=== PATIENT | male | born 1940 | race Caucasian/White ===

== ENCOUNTER 2017-06-04 07:55 | Outpatient (CLI) | payer MEDICARE ==
[~2017-06-04 07:55] MED LIST: Iopamidol 370 76% 100 ML VIAL ONE
[2017-06-04 08:56] LABS: Anion Gap 11 mmol/L (10-20); BUN (Urea Nitrogen) 22 mg/dL (8.4-25.7); Calc. Creatinine Clearance 0 mL/min (70-130); Calcium 9.6 mg/dL (7.8-10.44); Carbon Dioxide 27 mmol/L (23-31); Chloride 109 mmol/L (98-107); Estimated GFR-MDRD 56; Glucose 107 mg/dL (83-110); Sodium 143 mmol/L (136-145)
--- NOTE | 2017-06-04 11:35 | CT ---
CT ABDOMEN AND PELVIS WITH AND WITHOUT CONTRAST: Date: 06/04/17 HISTORY: Microhematuria. Urogram protocol. COMPARISON: CT abdomen dated 09/30/14. FINDINGS: The lung bases are clear. No pericardial effusion. Prior cardiac surgery. Normal proximal small bowel rotation. There is layering cholelithiasis within the gallbladder fundus. On the noncontrast portion of the examination, there are punctate, nonobstructive calculi interpolar left kidney. Left parapelvic renal cysts, mildly increased in size, without any enhancement. Numerous, too small t o characterize, hypodensities are present throughout the right kidney. Those are greater than 1.0 cm for a simple cyst, largest in the inferior pole of right kidney measuring up to 4.7 cm, mildly incre ased in size from prior exam where it measured up to 4.1 cm. Hypodensity posterior cortex interpolar left kidney mildly increased in size from the comparison examination without significant enhancement. Prostate is markedly enlarged measuring approximately 4.6 x 3.7 x 4.5 cm. Moderate diverticular disease of the sigmoid colon without any active inflammation. No dilated loops of large or small bowel. Moderate atherosclerotic plaque of the aortoiliac system. N o aneurysmal dilatation. Small left-sided indirect inguinal hernia containing fat. On the delayed sequence, there is no significant filling defect within the renal calices nor renal pe lvises. Mild enthesopathic changes of the greater trochanters. Moderate degenerative disease of spino us processes of the lumbar spine. Moderate degenerative disc space height loss throughout the lumbar spine. IMPRESSION: 1. Multiple bilateral renal cysts. 2. No abnormal renal enhancing mass. 3. No abnormal filling defect within the renal collecting systems or ureters. 4. Prostatomegaly. 5. Small, fat-containing, left-sided indirect inguinal hernia. 6. No abnormal intraperitoneal or retroperitoneal adenopathy. 7. Cholelithiasis without evidence of cholecystitis. POS: PELON
== END 2017-06-04 07:56 | disposition home or self-care (01) ==
LOC: CT 07:55
PROVIDERS: ATTEND Urology
DX: R31.29 Other microscopic hematuria (principal); N39.41 Urge incontinence; N40.1 Benign prostatic hyperplasia with lower urinary tract symptoms; N28.1 Cyst of kidney, acquired; K40.90 Unilateral inguinal hernia, without obstruction or gangrene, not specified as recurrent; K80.20 Calculus of gallbladder without cholecystitis without obstruction
CPT/HCPCS: 74178; 80048

== ENCOUNTER 2017-08-06 08:45 | Outpatient (CLI) | payer MEDICARE | END 2017-08-06 08:46 | disposition home or self-care (01) | LOC: BICMRI 08:45 | PROVIDERS: ATTEND Family Medicine | DX: M54.5 Low back pain (principal); M54.9 Dorsalgia, unspecified; M47.896 Other spondylosis, lumbar region; M48.061 Spinal stenosis, lumbar region without neurogenic claudication; M99.83 Other biomechanical lesions of lumbar region; M51.26 Other intervertebral disc displacement, lumbar region | CPT/HCPCS: 72148 ==

== ENCOUNTER 2018-05-01 13:10 | Outpatient (CLI) | payer MEDICARE ==
--- NOTE | 2018-05-01 15:45 | ULT ---
ARTERIAL DUPLEX SONOGRAM BILATERAL LOWER EXTREMITIES 05/01/18 HISTORY: Vascular disease. Leg pain . FINDINGS: There is good color and spectral doppler flow with biphasic arterial waveforms within each common fem oral and deep femoral, femoral, popliteal, anterior tibial, posterior tibial, and dorsalis pedis art devonte. No abnormally elevated peak systolic velocities are apparent. IMPRESSION: Good arterial flow throughout each lower extremity without evidence of significant stenosis. POS: PELON
== END 2018-05-01 13:11 | disposition home or self-care (01) ==
LOC: ULT 13:10
PROVIDERS: ATTEND Family Medicine
DX: I25.10 Atherosclerotic heart disease of native coronary artery without angina pectoris (principal); I73.89 Other specified peripheral vascular diseases; R26.81 Unsteadiness on feet
CPT/HCPCS: 93923

== ENCOUNTER 2019-04-17 15:26 | Outpatient (CLI) | payer MEDICARE ==
--- NOTE | 2019-04-17 16:35 | RAD ---
KUB: 04/17/19 PROVIDED CLINICAL HISTORY: Renal calculi. FINDINGS: No comparisons. The abdominal bowel gas pattern is nonspecific. Calcification overlying the left anisa pelvis is of uncertain etiology and significance. Phlebolith versus UVJ calculus. No definite additio nal radiographically apparent urinary tract calculi. Advanced degenerative changes are seen involving the lumbar spine. IMPRESSION: Left hemipelvic calculus as described. POS: TPC
--- NOTE | 2019-04-17 16:37 | ULT ---
RENAL ULTRASOUND: 04/17/19 PROVIDED CLINICAL HISTORY: Cyst/calculus. FINDINGS: Right kidney measures about 10 x 6.7 x 4.4 cm and demonstrates no evidence for hydronephrosis or kaity d mass. No sonographically apparent renal calculi. There is a simple appearing cyst emanating from th e inferior pole of the right kidney measuring about 6.2 cm. The left kidney measures approximately 9.4 x 6.8 x 5.2 cm and demonstrates no evidence for hydronephr osis, solid mass or sonographically apparent calculus. There is a 3.3 cm simple appearing parapelvic cyst. The urinary bladder appears sonographically unremarkable. IMPRESSION: No evidence for hydronephrosis. POS: TPC
== END 2019-04-17 15:27 | disposition home or self-care (01) ==
LOC: BICULT 15:26
PROVIDERS: ATTEND Urology
DX: N20.0 Calculus of kidney (principal); N28.1 Cyst of kidney, acquired
CPT/HCPCS: 36415; 74018; 76770; 80048; 81001

== ENCOUNTER 2019-06-16 11:14 | Outpatient (CLI) | payer MEDICARE ==
[2019-06-16 12:57] LABS: #Basophils 0.1 thou/uL (0.0-0.2); #Eosinphils 0.2 thou/uL (0.0-0.7); #Lymphocytes 2.1 thou/uL (1.20-3.40); #Monocytes 0.7 thou/uL (0.11-0.59); #Neutrophils 3.1 thou/uL (1.40-6.50); %Basophils 1.9 % (0.0-1.0); %Eosinophils 3.6 % (0.0-10.0); %Lymphocytes 33.9 % (21.0-51.0); %Monocytes 11.4 % (0.0-10.0); %Neutrophils 49.2 % (42.0-75.0); Hemoglobin 14.4 g/dL (14.0-18.0); Mean Corpuscular Hemoglobin 31.5 pg (27.0-31.0); Mean Corpuscular Volume 95.4 fL (78.0-98.0); Mean Platelet Volume 9.8 fL (7.4-10.4); Platelet Count 179 thou/uL (130-400); RBC Distribution Width 12.6 % (11.5-14.5); Red Blood Cell (RBC) Count 4.56 mill/uL (4.70-6.10); White Blood Cell (WBC) Count 6.3 thou/uL (4.8-10.8)
[2019-06-16 13:03] LABS: PTT 29.4 SEC (22.9-36.1)
[2019-06-16 13:04] LABS: Bacteria/HPF None Seen HPF (None Seen); Bilirubin Negative (Negative); Blood, Urine Negative (Negative); Clarity Clear (Clear); Glucose, Urine (Dipstick) Normal (Negative); Leukocyte Negative Leu/uL (Negative); Nitrite Negative (Negative); Protein, Urine (Dipstick) Negative (Neg-Trace); RBC/HPF 0-3 HPF (0-3); Squamous Epithelial 0-3 HPF (0-3); Urobilinogen Normal mg/dL (Less than 2); WBC/HPF 0-3 HPF (0-3)
[2019-06-16 13:15] LABS: Anion Gap 14 mmol/L (10-20); BUN (Urea Nitrogen) 21 mg/dL (8.4-25.7); Calc. Creatinine Clearance 0 mL/min (70-130); Calcium 9.3 mg/dL (7.8-10.44); Carbon Dioxide 24 mmol/L (23-31); Chloride 109 mmol/L (98-107); Estimated GFR-MDRD 48; Glucose 93 mg/dL (83-110); Potassium 4.1 mmol/L (3.5-5.1); Sodium 143 mmol/L (136-145)
== END 2019-06-16 11:15 | disposition home or self-care (01) ==
LOC: LABBT 11:14
PROVIDERS: ATTEND Urology
DX: Z01.818 Encounter for other preprocedural examination (principal); N40.1 Benign prostatic hyperplasia with lower urinary tract symptoms; N39.41 Urge incontinence; N28.1 Cyst of kidney, acquired; N20.0 Calculus of kidney; I25.10 Atherosclerotic heart disease of native coronary artery without angina pectoris; G30.9 Alzheimer's disease, unspecified; F02.80 Dementia in other diseases classified elsewhere, unspecified severity, without behavioral disturbance, psychotic disturbance, mood disturbance, and anxiety
CPT/HCPCS: 80048; 81001; 85025; 85610; 85730; 87086; 93005; 93010

== ENCOUNTER 2019-06-25 07:30 | Day surgery (SDC) | payer MEDICARE ==
[2019-06-16 11:32] VITALS: BMI 26.5
[~2019-06-25 07:30] MED LIST changes: -Iopamidol 370 76% 100 ML VIAL ONE; +Levofloxacin 500 mg/D5W 100 ml Premix Bag ONE
[2019-06-25] MEDS ORDERED: Fentanyl 100 MCG/2 ML VIAL ONE (08:20)
[2019-06-25] MEDS ORDERED: Oxybutynin 5 MG TAB ONE (09:25)
[2019-06-25] MEDS ORDERED: Phenazopyridine HCl 97.5 MG TABLET ONE (09:29)
[2019-06-25] MEDS ORDERED: PROPOFOL 200 MG/20 ML VIAL ONE (10:33)
[2019-06-25] MEDS ORDERED: Lidocaine 1% PF 5 ML VIAL ONE (10:33)
--- NOTE | 2019-06-25 10:47 | OP ---
DATE OF PROCEDURE: 06/25/2019 PREOPERATIVE DIAGNOSIS: Mr. Mclean is an 79-year-old male with history of benign prostatic hyperplasia, urge incontinence, IPSS score is 17. POSTOPERATIVE DIAGNOSIS: Mr. Mclean is an 79-year-old male with history of benign prostatic hyperplasia, urge incontinence, IPSS score is 17. PROCEDURES PERFORMED: Cystoscopy, UroLift x4. ANESTHESIA: TIVA. COMPLICATIONS: None apparent. DRAINS: None. INDICATIONS FOR PROCEDURE AND HISTORY: Mr. Mclean is a pleasant 79-year-old male with history of dementia, with BPH, with urge incontinence. The patient has been on dual medical therapy for numerous years and brother, who is the power of trade mark attorney, desires the patient to come up BPH medications. They have been fully informed that urge incontinence will likely ensue, as BPH is being treated, not his bladder pathology for overactive bladder. Risks and complications of the procedure have been discussed with patient and brother in detail including, but not limited to, bleeding, pain, infection, injury to adjacent organs, urosepsis, possible secondary procedure, incrustation, migration of implant requiring secondary procedure, chronic pain, injury to adjacent organs was reviewed. Options of observation with medical treatment were also reviewed. Alternative treatments including TURP reviewed. DESCRIPTION OF PROCEDURE: After an informed consent was signed, the patient was taken to the operating room, placed in a dorsal lithotomy position with the genital area prepped and draped in the usual surgical sterile fashion. A 21-Latvian cystoscope was utilized for cystoscopy and a 30-degree and a 70-degree lens was utilized. Bladder demonstrates no pathology. Prostatic hyperplasia bilobar obstructing was noted. Trabeculated bladder was noted. The UOs were away from the bladder neck about 3 mm. At this time, I transitioned to a 20-Latvian 0-degree UroLift cystoscope. Using a visual obturator, we passed to the level of the bladder. We treated the left lateral lobe first , staying about 1.5 cm proximal to the bladder neck. A total of 4 implants, two on each side was performed demonstrating a nice anterior channel with resolution of obstructing lateral lobes. He tolerated the procedure well and transported to the recovery room in stable condition. He had minimal oozing bleeding, therefore catheter was not left in situ. He will undergo voiding trial and will be discharged. He will see me ridgeorrow. He is discharged with ciprofloxacin for 3 days, Azo p.r.n. He is to continue his BPH medications for now. Job ID: [id number] MTDD
== END 2019-06-25 12:15 | disposition home or self-care (01) ==
LOC: SDC 07:30
PROVIDERS: ATTEND Urology
PROC: 0T7D8DZ Dilation of Urethra with Intraluminal Device, Via Natural or Artificial Opening Endoscopic (ICD-10-PCS; principal; 2019-06-25)
DX: N40.1 Benign prostatic hyperplasia with lower urinary tract symptoms (principal); N39.41 Urge incontinence; F03.90 Unspecified dementia, unspecified severity, without behavioral disturbance, psychotic disturbance, mood disturbance, and anxiety; Z79.82 Long term (current) use of aspirin; Z79.899 Other long term (current) drug therapy; Z95.1 Presence of aortocoronary bypass graft
CPT/HCPCS: C1889; J1956; J2001; J2704; J3010

== ENCOUNTER 2019-11-30 08:02 | Inpatient (IN) | payer MEDICARE, OTHER ==
[2019-11-30 08:40] LABS: #Eosinphils 0.1 thou/uL (0.0-0.7); #Monocytes 0.9 thou/uL (0.11-0.59); %Basophils 0.4 % (0.0-1.0); %Eosinophils 0.9 % (0.0-10.0); %Lymphocytes 12.7 % (21.0-51.0); %Monocytes 11.4 % (0.0-10.0); %Neutrophils 74.6 % (42.0-75.0); Hemoglobin 14.5 g/dL (14.0-18.0); Mean Corpuscular HGB CONC 33.9 g/dL (32.0-36.0); Mean Corpuscular Hemoglobin 32.3 pg (27.0-31.0); Mean Corpuscular Volume 95.4 fL (78.0-98.0); Mean Platelet Volume 10.2 fL (7.4-10.4); Platelet Count 140 thou/uL (130-400); RBC Distribution Width 12.5 % (11.5-14.5); White Blood Cell (WBC) Count 8.1 thou/uL (4.8-10.8)
[2019-11-30 09:01] LABS: ALT (SGPT) 27 U/L (8-55); AST (SGOT) 34 U/L (5-34); Albumin 4.3 g/dL (3.4-4.8); Alkaline Phosphatase 100 U/L (40-110); Anion Gap 14 mmol/L (10-20); BUN (Urea Nitrogen) 22 mg/dL (8.4-25.7); Bilirubin, Total 0.5 mg/dL (0.2-1.2); CK (CPK) 779 U/L (30-200); Calc. Creatinine Clearance 0 mL/min (70-130); Calcium 9.1 mg/dL (7.8-10.44); Carbon Dioxide 26 mmol/L (23-31); Chloride 104 mmol/L (98-107); Estimated GFR-MDRD 45; Globulin 2.7 g/dL (2.4-3.5); Glucose 117 mg/dL (83-110); Potassium 3.5 mmol/L (3.5-5.1); Sodium 140 mmol/L (136-145)
--- NOTE | 2019-11-30 09:05 | CT ---
CT BRAIN NONCONTRAST: DATE: 11/30/2019 HISTORY: 79-year-old male with altered mental status status post head trauma from fall FINDINGS: There is no evidence of acute intra-axial or extra-axial hemorrhage. There is no midline shift or any other mass effect. There is no extra-axial fluid collection. Mild to moderate ventriculomegaly, probably due to brain atrophy. Small to moderate-sized old infarction inferior aspect of right cerebe llar hemisphere. Moderate-sized old infarction involving posterior and inferior aspect of left cerebellar hemisphere. Tiny old lacunar infarctions involving anterior limb of left internal capsule and bilateral external capsules, and probably the daisy. Calvarium is intact. There is diffuse brain parenchymal volume loss. There are low attenuation areas in the white matter. These are nonspecific, but in a patient of this age, they are probably chronic ischemic white matter changes due to microvascular atherosclerosis. Total opacification of left maxillary sinus. Osseous mural thickening of left maxillary sinus indicates long-standing, chronic sinusitis. High density material within the left maxillary sinus lumen suggestive of chronic fungal colonization. Small calcification within it. Polypoid masses in the anterior portions of nasal cavities bilaterally. Right maxillary sinus, and frontal sinuses, and bilateral tympanomastoid cavities, are grossly clear. Mild to moderate polyp oid mucosal thickening throughout bilateral ethmoid air cells. Polypoid mucosal thickening mildly at anterior portions of bilateral sphenoid air cells. The rest of the sphenoid air cells are clear. IMPRESSION: 1) No acute intracranial findings. 2) involutional changes and chronic ischemic white matter changes. 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 5) paranasal sinus disease and nasal disease.
[2019-11-30] MEDS ORDERED: Aspirin Chewable 81 MG TAB ONE ×3 (09:19→09:29)
--- NOTE | 2019-11-30 09:55 | CT ---
CT CERVICAL SPINE WITHOUT CONTRAST: INDICATIONS: Unwitnessed fall and concern for neck injury. FINDINGS: No acute fracture or subluxation is evident. There is advanced disk degenerative disease at C4-C5, C5 -C6 and C6-C7. The craniocervical junction is normal appearing. The lung apices are clear. The parave rtebral soft tissues are normal appearing. IMPRESSION: 1. No acute fracture or subluxation is evident. 2. Severe multilevel cervical spondylosis. POS: BH
[2019-11-30] MEDS ORDERED: Acetaminophen 650 MG Suppository PR PRN (11:00)
[2019-11-30] MEDS ORDERED: Senokot S 8.6-50 MG TAB PO PRN (11:00)
[2019-11-30] MEDS ORDERED: Acetaminophen 325 MG TAB PO PRN (11:00)
--- NOTE | 2019-11-30 11:17 | RAD ---
CHEST ONE VIEW: INDICATIONS: History of unwitnessed fall. COMPARISON: Prior exam dated 04/12/2014 and a chest radiograph dated 07/03/2018. FINDINGS: Midline sternotomy changes and mild cardiomegaly are stable. Lungs are clear. No pleural effusion or pneumothorax is evident. No definite displaced fracture is evident. IMPRESSION: No acute cardiopulmonary abnormality. POS: BH
[2019-11-30 12:43] LABS: Troponin I 0.054 ng/mL (< 0.028)
[2019-11-30 12:48] LABS: Bacteria/HPF None Seen HPF (None Seen); Bilirubin Negative (Negative); Blood, Urine 1+ (Negative); Clarity Clear (Clear); Glucose, Urine (Dipstick) Normal (Negative); Ketone, Urine Negative (Negative); Leukocyte Negative Leu/uL (Negative); Nitrite Negative (Negative); Protein, Urine (Dipstick) 30 mg/dL (Neg-Trace); RBC/HPF 0-3 HPF (0-3); Specific Gravity, Urine 1.025 (1.002-1.036); Squamous Epithelial None Seen HPF (0-3); Urobilinogen Normal mg/dL (Less than 2); WBC/HPF 0-3 HPF (0-3); pH, Urine 5.5 (5.0-9.0)
--- NOTE | 2019-11-30 13:26 | MRI ---
MRI BRAIN NONCONTRAST: DATE: 11/30/2019 HISTORY: 79-year-old male with altered mental status, status post head trauma from fall. FINDINGS: There is no evidence of acute intra-axial or extra-axial hemorrhage. There is no midline shift or any other mass effect. There is no extra-axial fluid collection. Mild to moderate ventriculomegaly, probably due to brain atrophy. Small to moderate-sized old infarction inferior aspect of right cerebellar hemisphere. Moderate-sized old infarction involving posterior inferior aspect of left cerebellar hemisphere. Tiny old lacunar infarctions involving anterior limb of left internal capsule. No pontine lesion visualized. There is diffuse brain parenchymal volume loss. There are mild-moderate chronic ischemic white matter changes due to microvascular atherosclerosis. Total opacification of left maxillary sinus. Osseous mural thickening of left maxillary sinus indicates long-standing, chronic sinusitis. T2-hypointense material within the left maxillary sinus lumen suggestive of chronic fungal plus small calcification within it. Polypoid masses in the anterior portions of nasal cavities bilaterally. No restricted diffusion to indicate acute infarction. No evidence of recent intra-axial hemorrhage. IMPRESSION: 1) no acute intracranial findings. 2) involutional changes and chronic ischemic white matter changes. 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
--- NOTE | 2019-11-30 13:57 | HP ---
PRIMARY CARE PHYSICIAN: Dr. Beard. CHIEF COMPLAINT: Altered mental status with fall. HISTORY OF PRESENT ILLNESS: Mr. Mclean is an 79-year-old male, who reported to the emergency room today [facility]. ER records and also medical power of trust and estates attorney, his brother, Brijesh, state that they were told that he was found this morning prior to 7 o'clock or around 7 o'clock between the bed and the closet with his head on the bed. Reports in the last day or two the [facility] told his brother that he was not quite himself that they could not understand. He usually can get some words out. He may not be able to formulate a full sentence, but he does speak. He is ambulatory. [facility] usually gets him up in the morning, out. He usually gets dressed and then they will come back and get him and walk with him to have meals. He was unable to ambulate today. He is altered more than his normal. He is usually A and O x1. On the emergency room and for me, he was A and O x0. He will open his eyes he does answer to his name, but he did not speak today and does not follow commands, which is not his baseline per his brother. He does have a past medical history of a coronary artery disease, hyperlipidemia, hypertension, dementia, as well as glaucoma. In the emergency room, his workup was largely unremarkable. He had a CT scan of the head and the neck, which showed some old lacunar infarcts in his brain CT changes and chronic ischemic white matter changes. He had a moderate-sized old infarction in the bilateral PICA and then tiny old infarcts in the left internal capsule and bilateral external capsules, paranasal sinus disease and nasal disease, but otherwise negative for any acute findings. His troponin was slightly bumped in the indeterminate range of 0.054. They did a straight cath. We were able to get urine, but those are not back at the time of this dictation. CK was 779. His creatinine was 1.51, but that is about at baseline, maybe a little elevated. GFR is 54, glucose at 117. White blood cell count at 8.1, hemoglobin of 14.5, hematocrit is 42.9. Chest x-ray showed no acute findings. His brother did report that he had been coughing over the last couple of days, but that was the only. He thought that maybe he might have some postnasal drip, but no fevers were reported at the [facility], and he is afebrile in the emergency room. The patient also is a full code. He will be admitted to the stroke unit for further evaluation. REVIEW OF SYSTEMS: The patient is unable to give a good history. The history that I have been able to obtain is from the emergency record and from his brother, Brijesh, who is his medical power of trust and estates attorney. He would open his eyes, but did not really respond, so a good history was unable to be obtained from the patient. Brother did report that he was not quite himself, was not talking normally. Reports that the [facility] said that speech was off and he is normally ambulatory and he was not unable to get himself up this morning when they found him down. PAST MEDICAL HISTORY: Please see HPI. PAST SURGICAL HISTORY: Coronary artery bypass, three vessels, in 2004. PSYCH HISTORY: Other than dementia, none. SOCIAL HISTORY: Denies any alcohol drug use. No smoking history. MEDICATIONS: 1. Namenda XR 28 mg p.o. once a day. 2. Latanoprost 0.005% one drop each eye once a day at bedtime. 3. Losartan 100 mg p.o. q.a.m. 4. Nifedipine 90 mg p.o. once a day in the morning. 5. Myrbetriq 50 mg p.o. once a day. 6. Multivitamin two tabs b.i.d. 7. Potassium chloride 10 mEq once a day. 8. Sertraline 25 mg p.o. once a day. 9. Flomax 0.4 mg p.o. once a day. 10. Atorvastatin 40 mg p.o. once a day. 11. Aspirin 81 mg p.o. once a day. 12. HydroDIURIL 25 mg p.o. once a day. 13. Flonase 2 sprays bilateral nares once a day. 14. Aricept 1 tab at bedtime 10 mg. 15. Tylenol 650 mg p.o. q.6 hours p.r.n. 16. Loperamide 2 mg p.o. as needed. 17. Systane 0.3% one drop both eyes as needed. ALLERGIES: NONE. PHYSICAL EXAMINATION: CONSTITUTIONAL: The patient appears nontoxic. He is responsive to verbal stimuli, but he does not answer questions nor does he respond to commands. He is pretty sleepy. He opens his eyes, but then he goes right back to sleep. HEENT: Head is atraumatic and normocephalic. Eyes; eyelids are normal to inspection. Extraocular muscles are intact. ENT; mouth exam is normal. Mucous membranes are moist. NECK: Normal range of motion. Trachea is midline. RESPIRATORY/CHEST: There are no signs of any respiratory distress. Breath sounds are clear. CARDIOVASCULAR: Regular rate and rhythm. Heart sounds are normal. ABDOMEN: Nontender. Bowel sounds are heard. BACK: Normal range of motion. No tenderness. EXTREMITIES: Upper extremity, normal inspection; radial pulses are normal. Lower extremity, normal inspection. Pedal pulses are normal. There is an abrasion noted to the left patella. SKIN: The patient is altered. He is responsive to his name, but does not answer questions. Does not follow commands. Speech and gait were unable to assess. SKIN: Warm, dry, normal in color. He does have the abrasion to the left patella. DIAGNOSTIC STUDIES: EKG per the ER system shows a normal sinus rhythm, beats per minute 72, right bundle-branch block, T-wave abnormality. ASSESSMENT: 1. Altered mental status. We are currently awaiting the urine to result. His brother did report that the last time he acted like this he had a urinary tract infection. CT of the scan of the head and neck, negative for acute findings. We will order an MRI of the brain without contrast, echocardiogram, carotid Dopplers. Ask PT, OT, Speech to consult. Get a bedside dysphagia screen. Aspirin 325 mg p.o. daily. We will restart his Lipitor, get fasting lipids and a TSH level. 2. Elevated troponins in the indeterminate range. We will trend these. 3. History of hypertension. We will restart his home medications. 4. History of hyperlipidemia. See #1. 5. History of dementia. We will restart his home medications. 6. GI and deep venous thrombosis prophylaxis started. 7. Case discussed with Dr. Bernal, who agrees with plan. Medical power of trust and estates attorney is Brijesh, and his phone #[phone], his brother. Hospital course dependent on clinical findings. Job ID: [id number]
[2019-11-30 14:35] LABS: Lactic Acid 0.8 mmol/L (0.5-2.2)
[2019-11-30 15:40] VITALS: BMI 24.4
[2019-11-30 15:51] LABS: Troponin I 0.054 ng/mL (< 0.028)
--- NOTE | 2019-11-30 16:00 | ULT ---
BILATERAL CAROTID DUPLEX ULTRASOUND: HISTORY: Altered mental status, head trauma from fall TECHNIQUE: Grayscale, color-flow and spectral Doppler ultrasound imaging of the extracranial carotid artery syst ems was performed bilaterally. FINDINGS: There is plaque formation on both sides. The peak systolic velocity in the right ICA measures 90 cm/s with an end-diastolic velocity of 19 cm/ s and a systolic ratio of 0.85. The peak systolic velocity in the left ICA measures 71 cm/s with an end-diastolic velocity of 15 cm/s and a systolic ratio of 0.84. Flow in both vertebral arteries remains antegrade. IMPRESSION: No evidence of hemodynamically significant stenosis in either ICA
[2019-11-30] MEDS: Heparin 5,000 UNITS/ML VIAL SC SCH ×2 (16:37→20:44)
[2019-11-30] MEDS: Latanoprost 0.005% Ophth Soln 2.5 ml Bottle EA EYE SCH (20:44)
[2019-11-30] MEDS: Donepezil HCl 10 MG TAB PO SCH (20:45)
[2019-11-30] MEDS: Atorvastatin Calcium 40 MG TAB PO SCH (20:45)
[2019-11-30] MEDS: Famotidine 20 MG TAB PO SCH (20:45)
[2019-12-01 07:18] LABS: Anion Gap 12 mmol/L (10-20); BUN (Urea Nitrogen) 20 mg/dL (8.4-25.7); Calc. Creatinine Clearance 42 mL/min (70-130); Calcium 9.1 mg/dL (7.8-10.44); Carbon Dioxide 30 mmol/L (23-31); Cardiac Risk 3.3 (Less than 4.5); Chloride 104 mmol/L (98-107); Cholesterol 150 mg/dl (< 200 Desired); Estimated GFR-MDRD 53; Glucose 98 mg/dL (83-110); HDL Cholesterol 46 mg/dL (>60 Neg Risk); LDL Cholesterol, Calculated 87 mg/dL; Potassium 3.8 mmol/L (3.5-5.1); Sodium 142 mmol/L (136-145); Triglycerides 87 mg/dL (Less than 150)
[2019-12-01 07:19] LABS: Hemoglobin 14.7 g/dL (14.0-18.0); Mean Corpuscular HGB CONC 32.4 g/dL (32.0-36.0); Mean Corpuscular Hemoglobin 31.7 pg (27.0-31.0); Mean Corpuscular Volume 97.9 fL (78.0-98.0); Mean Platelet Volume 10.5 fL (7.4-10.4); Platelet Count 129 thou/uL (130-400); RBC Distribution Width 12.5 % (11.5-14.5); Red Blood Cell (RBC) Count 4.65 mill/uL (4.70-6.10); White Blood Cell (WBC) Count 5.7 thou/uL (4.8-10.8)
[2019-12-01] MEDS: Heparin 5,000 UNITS/ML VIAL SC SCH ×3 (08:32→21:09)
[2019-12-01] MEDS: Aspirin 325 mg Enteric Coated Tablet PO SCH (08:33)
[2019-12-01] MEDS: Losartan 25 MG TAB PO SCH (08:33)
[2019-12-01] MEDS: Hydrochlorothiazide 25 MG TAB PO SCH (08:33)
[2019-12-01] MEDS: Famotidine 20 MG TAB PO SCH (08:33)
[2019-12-01] MEDS ORDERED: Prevnar 13-Val Conj/PF 0.5 ML SYRINGE IM ONE (09:00)
[2019-12-01 09:27] LABS: CKMB 3.6 ng/mL (0-6.6)
[2019-12-01 10:42] LABS: Band 4 % (5-11); Eosinophils 3 % (0-10); Lymphocytes 20 % (21-51); MDiff Complete? YES; Monocytes 16 % (0-10); Neutrophil 53 % (42-75); Platelet Morphology Comment Appears Adequate; Reactive Lymphocytes 4 % (0-10)
[2019-12-01] MEDS: Fluticasone Propionate Nasal Spray 16 gm Bottle NASAL SCH (12:36)
[2019-12-01] MEDS: NIFEdipine XL 90 MG TAB PO SCH (12:38)
[2019-12-01 14:41] LABS: SARS-CoV-2 MS2 Positive; SARS-CoV-2 N Gene Negative; SARS-CoV-2 S Gene Negative; SARS-CoV-2 by NAA Not Detected (NotDetected); SARS-CoV-2 orf1ab Negative
[2019-12-01] MEDS ORDERED: Sodium Chloride 0.9% 500 ML IV SCH (15:00)
--- NOTE | 2019-12-01 15:21 | PDOC.FMACP ---
Advance Care Planning - Problem (1) Hypertension Status: Acute Code(s): I10 - ESSENTIAL (PRIMARY) HYPERTENSION (2) Palliative care encounter Status: Acute Code(s): Z51.5 - ENCOUNTER FOR PALLIATIVE CARE (3) Dementia Status: Acute Code(s): F03.90 - UNSPECIFIED DEMENTIA WITHOUT BEHAVIORAL DISTURBANCE - Note Participants: family, surrogate decision-maker, palliative care Summary: Palliative Care reviewed Advanced Care Planning with patient brother Kang who is listed as MPOA. The diagnosis, prognosis and goals of care were discussed. Appropriate forms and documentation to accomplish the goals of care were discussed. All questions were answered. Kang patient had communicated in the past that his wishes were to remain with full resuscitating, however if not able to have a quality did not desire prolonged support and transition to comfort. Discussed potential for consideration of DNAR in the future if disease trajectory continued toward decline. Please refer to Palliative Care notes in note section Directive addressed, MPOA documented and confirmed. Palliative care will sign off, if we can assist in the future with revisiting Directives, Goal of Care, family support, coping, or symptom management please reconsult our team Time Spent (mins): 20
--- NOTE | 2019-12-01 16:26 | PDOC.EVN ---
Event Note - Event Note Event Note: pt seen and examined he is oriented to self only that is his baseline. will work him up for tia/stroke. will give him some gentle fluids and watch him overnight. will also get PT/OT and see how he does. vitals stable, pt is arousable and oriented to self only, lungs clear, s1 s2 present no murmurs noted.
--- NOTE | 2019-12-01 16:28 | PDOC.HOSPP ---
- Subjective Encounter Date: 12/01/19 Encounter Time: 10:20 Subjective: pt up in bed does not appear in any distress. OT at bedside working with him. - Objective Vital Signs & Weight: Vital Signs (12 hours) Temp Pulse Pulse Resp BP BP BP 12/01/19 15:21 97.9 F 60 16 12/01/19 12:38 59 L 138/84 12/01/19 11:09 97.8 F 54 L 18 12/01/19 10:27 56 L 147/83 H 150/89 H 12/01/19 07:30 97.6 F 53 L 14 BP Pulse Ox 12/01/19 15:21 97/58 L 94 L 12/01/19 12:38 12/01/19 11:09 138/84 94 L 12/01/19 10:27 12/01/19 07:30 161/81 H 98 Weight Weight 147 lb I&O: 11/30/19 12/01/19 12/02/19 06:59 06:59 06:59 Intake Total 50 120 Balance 50 120 Result Diagrams: 12/01/19 06:47 12/01/19 06:47 Hospitalist ROS - Review of Systems Other: unable to obtain - Medication Medications: Active Medications Generic Name Dose Route Start Last Admin Trade Name Freq PRN Reason Stop Dose Admin Aspirin 325 mg 12/01/19 09:00 12/01/19 08:33 Ecotrin PO 325 mg DAILY NATALY Administration Atorvastatin Calcium 40 mg 11/30/19 21:00 11/30/19 20:45 Lipitor PO 40 mg HS NATALY Administration Donepezil HCl 10 mg 11/30/19 21:00 11/30/19 20:45 Aricept PO 10 mg HS NATALY Administration Fluticasone Propionate 0 gm 12/01/19 09:00 12/01/19 12:36 Flonase Nasal [place] NASAL 1 spr DAILY NATALY Administration Heparin Sodium (Porcine) 5,000 units 11/30/19 15:00 12/01/19 15:58 Heparin SC 5,000 units TID NATALY Administration Hydrochlorothiazide 25 mg 12/01/19 09:00 12/01/19 08:33 Hydrochlorothiazide PO 25 mg DAILY NATALY Administration Latanoprost 1 drop 11/30/19 21:00 11/30/19 20:44 Xalatan 0.005% Ophth Soln EA EYE 1 drop HS NATALY Administration Losartan Potassium 100 mg 12/01/19 09:00 12/01/19 08:33 Cozaar PO 100 mg DAILY NATALY Administration Memantine 10 mg 12/01/19 09:00 12/01/19 08:33 Namenda PO 10 mg BID NATALY Administration Mirabegron 50 mg 12/01/19 09:00 12/01/19 08:33 Myrbetriq Er PO 50 mg DAILY NATALY Administration Nifedipine 90 mg 12/01/19 13:00 12/01/19 12:38 Procardia Xl PO 90 mg 1300 NATALY Administration Sertraline HCl 25 mg 12/01/19 09:00 12/01/19 08:33 Zoloft PO 25 mg DAILY NATALY Administration Sodium Chloride 10 ml 11/30/19 11:00 11/30/19 20:45 Flush - Normal Saline IVF 10 ml PRN PRN Administration Saline Flush - Exam Neck: negative: supple, symmetric, no JVD, no thyromegaly, no lymphadenopathy, no carotid bruit, JVD Heart: negative: RRR, no murmur, no gallops, no rubs, normal peripheral pulses, irregular, diminshed peripheral pulses, murmur present, II/IV, III/IV Respiratory: negative: CTAB, no wheezes, no rales, no ronchi, normal chest expansion, no tachypnea, normal percussion, rales, rhonchi, tachypneic, wheezes Gastrointestinal: negative: soft, non-tender, non-distended, normal bowel sounds , no palpable masses, no hepatomegaly, no splenomegaly, no bruit, no guarding, no rigidity, tender to palpation, distended, diminished bowl sounds, voluntary guarding Hosp A/P (1) Fall Code(s): W19.XXXA - UNSPECIFIED FALL, INITIAL ENCOUNTER Status: Acute (2) Elevated CK Status: Acute (3) Elevated troponin Code(s): R79.89 - OTHER SPECIFIED ABNORMAL FINDINGS OF BLOOD CHEMISTRY Status : Acute (4) Dementia Code(s): F03.90 - UNSPECIFIED DEMENTIA WITHOUT BEHAVIORAL DISTURBANCE Status: Acute (5) Hypertension Code(s): I10 - ESSENTIAL (PRIMARY) HYPERTENSION Status: Acute - Plan pt's mri indicated previous strokes. carotid Doppler negative. His ekg no acute changes. echo pending. pt does not seem to be in any distress and is not complaining of any chest pain.
[2019-12-01] MEDS: Melatonin 3 MG TAB PO PRN (21:09)
[2019-12-01] MEDS: Atorvastatin Calcium 40 MG TAB PO SCH (21:10)
[2019-12-01] MEDS: Donepezil HCl 10 MG TAB PO SCH (21:10)
[2019-12-01] MEDS: Latanoprost 0.005% Ophth Soln 2.5 ml Bottle EA EYE SCH (21:10)
[2019-12-01] MEDS ORDERED: Temazepam 15 MG CAP PO SCH ×2 (21:45→22:15)
[2019-12-02] MEDS: Heparin 5,000 UNITS/ML VIAL SC SCH ×3 (08:24→20:18)
[2019-12-02] MEDS: Fluticasone Propionate Nasal Spray 16 gm Bottle NASAL SCH (08:24)
[2019-12-02] MEDS: Famotidine 20 MG TAB PO SCH (08:24)
[2019-12-02] MEDS: Losartan 25 MG TAB PO SCH (08:25)
[2019-12-02] MEDS: Aspirin 325 mg Enteric Coated Tablet PO SCH (08:25)
[2019-12-02] MEDS: Hydrochlorothiazide 25 MG TAB PO SCH (08:25)
[2019-12-02] MEDS: NIFEdipine XL 90 MG TAB PO SCH (13:52)
[2019-12-02] MEDS: Latanoprost 0.005% Ophth Soln 2.5 ml Bottle EA EYE SCH (20:17)
[2019-12-02] MEDS: Melatonin 3 MG TAB PO PRN (20:18)
[2019-12-02] MEDS: Atorvastatin Calcium 40 MG TAB PO SCH (20:18)
[2019-12-02] MEDS: Donepezil HCl 10 MG TAB PO SCH (20:18)
[2019-12-03 05:20] LABS: Anion Gap 13 mmol/L (10-20); BUN (Urea Nitrogen) 27 mg/dL (8.4-25.7); Calc. Creatinine Clearance 44 mL/min (70-130); Carbon Dioxide 28 mmol/L (23-31); Chloride 105 mmol/L (98-107); Estimated GFR-MDRD 55; Glucose 98 mg/dL (83-110); Potassium 3.5 mmol/L (3.5-5.1); Sodium 142 mmol/L (136-145)
[2019-12-03] MEDS: Fluticasone Propionate Nasal Spray 16 gm Bottle NASAL SCH (08:58)
[2019-12-03] MEDS: Aspirin 325 mg Enteric Coated Tablet PO SCH (08:58)
[2019-12-03] MEDS: Hydrochlorothiazide 25 MG TAB PO SCH (08:58)
[2019-12-03] MEDS: Losartan 25 MG TAB PO SCH (08:58)
[2019-12-03] MEDS: Famotidine 20 MG TAB PO SCH (08:58)
[2019-12-03] MEDS: Heparin 5,000 UNITS/ML VIAL SC SCH ×3 (08:59→20:33)
--- NOTE | 2019-12-03 13:50 | PDOC.HOSPP ---
- Subjective Encounter Date: 12/03/19 Encounter Time: 11:15 Subjective: pt up walking with PT. - Objective Vital Signs & Weight: Vital Signs (12 hours) Temp Pulse Resp BP BP Pulse Ox 12/03/19 13:10 97.8 F 59 L 16 121/77 96 12/03/19 09:39 134/82 12/03/19 08:10 97.7 F 53 L 20 123/76 97 12/03/19 03:37 97.4 F L 57 L 14 142/76 H 95 Weight Weight 147 lb I&O: 12/02/19 12/03/19 12/04/19 06:59 06:59 06:59 Intake Total 880 340 Output Total 1 Balance 879 340 Result Diagrams: 12/01/19 06:47 12/03/19 04:23 Hospitalist ROS - Review of Systems Other: unable to obtain - Medication Medications: Active Medications Generic Name Dose Route Start Last Admin Trade Name Freq PRN Reason Stop Dose Admin Acetaminophen 650 mg 11/30/19 11:00 12/01/19 21:09 Tylenol PO 650 mg Q4H PRN Administration Headache/Fever/Mild Pain (1-3) Aspirin 325 mg 12/01/19 09:00 12/03/19 08:58 Ecotrin PO 325 mg DAILY NATALY Administration Atorvastatin Calcium 40 mg 11/30/19 21:00 12/02/19 20:18 Lipitor PO 40 mg HS NATALY Administration Donepezil HCl 10 mg 11/30/19 21:00 12/02/19 20:18 Aricept PO 10 mg HS NATALY Administration Famotidine 20 mg 12/02/19 09:00 12/03/19 08:58 Pepcid PO 20 mg DAILY NATALY Administration Fluticasone Propionate 0 gm 12/01/19 09:00 12/03/19 08:58 Flonase Nasal Farner NASAL 2 spr DAILY NATALY Administration Heparin Sodium (Porcine) 5,000 units 11/30/19 15:00 12/03/19 08:59 Heparin SC 5,000 units TID NATALY Administration Hydrochlorothiazide 25 mg 12/01/19 09:00 12/03/19 08:58 Hydrochlorothiazide PO 25 mg DAILY NATALY Administration Latanoprost 1 drop 11/30/19 21:00 12/02/19 20:17 Xalatan 0.005% Ophth Soln EA EYE 1 drop HS NAATLY Administration Losartan Potassium 100 mg 12/01/19 09:00 12/03/19 08:58 Cozaar PO 100 mg DAILY NATALY Administration Melatonin 3 mg 12/01/19 20:40 12/02/19 20:18 Melatonin PO 3 mg HS PRN Administration Insomnia Memantine 10 mg 12/01/19 09:00 12/03/19 08:59 Namenda PO 10 mg BID NATALY Administration Mirabegron 50 mg 12/01/19 09:00 12/03/19 08:58 Myrbetriq Er PO 50 mg DAILY NATALY Administration Nifedipine 90 mg 12/01/19 13:00 12/02/19 13:52 Procardia Xl PO 90 mg 1300 NATALY Administration Sertraline HCl 25 mg 12/01/19 09:00 12/03/19 08:58 Zoloft PO 25 mg DAILY NATALY Administration Sodium Chloride 10 ml 11/30/19 11:00 12/02/19 20:17 Flush - Normal Saline IVF 10 ml PRN PRN Administration Saline Flush - Exam Neck: negative: supple, symmetric, no JVD, no thyromegaly, no lymphadenopathy, no carotid bruit, JVD Heart: negative: RRR, no murmur, no gallops, no rubs, normal peripheral pulses, irregular, diminshed peripheral pulses, murmur present, II/IV, III/IV Respiratory: negative: CTAB, no wheezes, no rales, no ronchi, normal chest expansion, no tachypnea, normal percussion, rales, rhonchi, tachypneic, wheezes Gastrointestinal: negative: soft, non-tender, non-distended, normal bowel sounds , no palpable masses, no hepatomegaly, no splenomegaly, no bruit, no guarding, no rigidity, tender to palpation, distended, diminished bowl sounds, voluntary guarding Hosp A/P (1) Fall Code(s): W19.XXXA - UNSPECIFIED FALL, INITIAL ENCOUNTER Status: Acute (2) Elevated CK Status: Acute (3) Elevated troponin Code(s): R79.89 - OTHER SPECIFIED ABNORMAL FINDINGS OF BLOOD CHEMISTRY Status : Acute (4) Dementia Code(s): F03.90 - UNSPECIFIED DEMENTIA WITHOUT BEHAVIORAL DISTURBANCE Status: Acute (5) Hypertension Code(s): I10 - ESSENTIAL (PRIMARY) HYPERTENSION Status: Acute - Plan pt's mri indicated previous strokes. carotid Doppler negative. His ekg no acute changes. echo pending. pt does not seem to be in any distress and is not complaining of any chest pain. 12/01 spoke with pt's brother and updated him. will try to see if pt will get inpatient rehab. pt has sever dementia. old stroke on asa/statin. 12/02 pt does not meet the criteria for inpatient rehab. pt will need snf for risk of fall or he will need 24hr assistance given his high risk of fall.
[2019-12-03] MEDS: NIFEdipine XL 90 MG TAB PO SCH (16:04)
[2019-12-03] MEDS: Latanoprost 0.005% Ophth Soln 2.5 ml Bottle EA EYE SCH (20:33)
[2019-12-03] MEDS: Melatonin 3 MG TAB PO PRN (20:33)
[2019-12-03] MEDS: Donepezil HCl 10 MG TAB PO SCH (20:33)
[2019-12-03] MEDS: Atorvastatin Calcium 40 MG TAB PO SCH (20:33)
[2019-12-04] MEDS: Fluticasone Propionate Nasal Spray 16 gm Bottle NASAL SCH (08:52)
[2019-12-04] MEDS: Famotidine 20 MG TAB PO SCH (08:53)
[2019-12-04] MEDS: Aspirin 325 mg Enteric Coated Tablet PO SCH (08:53)
[2019-12-04] MEDS: Losartan 25 MG TAB PO SCH (08:53)
[2019-12-04] MEDS: Hydrochlorothiazide 25 MG TAB PO SCH (08:53)
[2019-12-04] MEDS: Heparin 5,000 UNITS/ML VIAL SC SCH (08:54)
[2019-12-04 11:34] VITALS: BP 119/71; TEMP 97.8
--- NOTE | 2019-12-05 10:42 | DIS ---
DATE OF ADMISSION: 12/02/2019 DATE OF DISCHARGE: 12/04/2019 DISCHARGE DIAGNOSES: As of the following; 1. Acute metabolic encephalopathy. 2. Dementia. 3. Fall. 4. Mildly elevated CK. 5. History of strokes. 6. Mild elevated troponins. HOSPITAL COURSE: The patient is an 79-year-old male. The patient was initially admitted to the hospital after a fall. The patient lives in an assisted living. He does have history of dementia and at baseline is oriented only to himself and maybe his brother, who is his power of state attorney. The patient at this time was ruled out for stroke. He had an MRI of the brain done, which indicated not an acute stroke; however, he had moderate size old infarcts in bilateral PICA territories, also tiny old infarct in the left internal capsule. At this time, this was related to the patient's brother, Kang. The patient also had an echocardiogram, given his mildly elevated troponins, however, he had no pain. His EF was 60% to 65%. Moderately dilated left atrium and sigmoid-shaped septum without any hemodynamically significant left ventricular outlet obstruction. in the hospital, he did well. However, he required some assistance at times. His ambulation was he was waxing and waning and required a little bit more one-on-one care. He was evaluated for inpatient rehab, which was denied. We then asked the family if group home would be an option, they refused. At this time, the patient will be discharged home PT, OT, and the patient's brother is aware of this. He also had carotid Dopplers, did not indicate any hemodynamically significant stenosis. His medication on discharge will be; 1. Aspirin 81 mg daily. 2. Donepezil one p.o. daily. 3. He is going to be on fluticasone two spray daily. 4. Cozaar 100 mg daily. 5. Namenda 20 mg daily. 6. Zoloft one tab daily. 7. Atorvastatin 40 mg daily. 8. Nifedipine one tab p.o. daily. PHYSICAL EXAMINATION: VITAL SIGNS: On discharge, temperature of 97.8, pulse 60, oxygen saturation 97% on room air, and blood pressure 119/71. GENERAL: He is awake, alert, and oriented x3. Does not appear in distress. CV: S1 and S2 present. No murmurs, rubs, or gallops. Again, he will be discharged back to his group home and follow up with his primary. Job ID: [id number]
--- NOTE | 2019-12-06 15:12 | EKG ---
Test Reason : FALL Blood Pressure : / mmHG Vent. Rate : 072 BPM Atrial Rate : 072 BPM P-R Int : 148 ms QRS Dur : 146 ms QT Int : 424 ms P-R-T Axes : 051 006 -26 degrees QTc Int : 464 ms Normal sinus rhythm Right bundle branch block Inferior infarct , age undetermined T wave abnormality, consider lateral ischemia Abnormal ECG Confirmed by LORETTA BARKER DO ([id number]), health editor MILAD HEBERT ([id number]) on 12/06/2019 3:12:03 PM Referred By: Confirmed By:LORETTA BARKER DO
== END 2019-12-04 12:40 | disposition home health service (06) | DRG 72 ==
LOC: ERS 08:02 → OBSVTOIN 11:04 → 2SE 11:04 → INTOOBSV 11:04 → OBSVTOIN 12-02 11:15
PROVIDERS: ADMIT Internal Medicine; ATTEND Internal Medicine
DX: G93.41 Metabolic encephalopathy (principal); Z20.828 Contact with and (suspected) exposure to other viral communicable diseases; I25.10 Atherosclerotic heart disease of native coronary artery without angina pectoris; E78.5 Hyperlipidemia, unspecified; I10 Essential (primary) hypertension; F03.90 Unspecified dementia, unspecified severity, without behavioral disturbance, psychotic disturbance, mood disturbance, and anxiety; H40.9 Unspecified glaucoma; R79.89 Other specified abnormal findings of blood chemistry; Z95.1 Presence of aortocoronary bypass graft; Z79.82 Long term (current) use of aspirin; Z79.899 Other long term (current) drug therapy; Z91.81 History of falling; Z86.73 Personal history of transient ischemic attack (TIA), and cerebral infarction without residual deficits
CPT/HCPCS: 36415; 51701; 70450; 70551; 71045; 72125; 80048; 80053; 80061; 81003; 81015; 82140; 82550; 82553; 83605; 83735; 84146; 84443; 84484; 85025; 87635; 90471; 90670; 93005; 93306; 93880; 94760; 96360; 96372; G0009; G0378; J1644; U0003

== ENCOUNTER 2020-03-21 09:22 | Observation (INO) | payer MEDICARE ==
[2020-03-21 10:31] LABS: #Basophils 0.1 thou/uL (0.0-0.2); #Eosinphils 0.2 thou/uL (0.0-0.7); #Monocytes 0.5 thou/uL (0.11-0.59); #Neutrophils 3.3 thou/uL (1.40-6.50); %Eosinophils 3.7 % (0.0-10.0); %Lymphocytes 33.4 % (21.0-51.0); %Monocytes 8.3 % (0.0-10.0); %Neutrophils 53.6 % (42.0-75.0); Hemoglobin 14.3 g/dL (14.0-18.0); Mean Corpuscular HGB CONC 34.1 g/dL (32.0-36.0); Mean Corpuscular Volume 93.6 fL (78.0-98.0); Mean Platelet Volume 10.2 fL (7.4-10.4); Platelet Count 156 thou/uL (130-400); RBC Distribution Width 12.5 % (11.5-14.5); Red Blood Cell (RBC) Count 4.48 mill/uL (4.70-6.10); White Blood Cell (WBC) Count 6.1 thou/uL (4.8-10.8)
[2020-03-21 10:54] LABS: ALT (SGPT) 39 U/L (8-55); AST (SGOT) 34 U/L (5-34); Albumin 4.3 g/dL (3.4-4.8); Alkaline Phosphatase 88 U/L (40-110); Anion Gap 16 mmol/L (10-20); BUN (Urea Nitrogen) 26 mg/dL (8.4-25.7); Bilirubin, Total 0.6 mg/dL (0.2-1.2); Calc. Creatinine Clearance 0 mL/min (70-130); Calcium 9.1 mg/dL (7.8-10.44); Carbon Dioxide 21 mmol/L (23-31); Chloride 109 mmol/L (98-107); Globulin 2.4 g/dL (2.4-3.5); Glucose 109 mg/dL (83-110); Lipase 50 U/L (8-78); Potassium 3.6 mmol/L (3.5-5.1); Protein, Total 6.7 g/dL (5.8-8.1); Sodium 142 mmol/L (136-145)
[2020-03-21 11:24] LABS: CKMB 6.4 ng/mL (0-6.6)
--- NOTE | 2020-03-21 11:51 | RAD ---
PORTABLE CHEST 1 VIEW: Date: 03/21/2020 Time: 1013 hours HISTORY: Chest pain, altered mental status. COMPARISON: 11/30/2019. FINDINGS: Changes of median sternotomy again seen. The heart size is normal. No lobar consolidation, pneumothor aces, or pleural effusions are seen. IMPRESSION: No acute process. POS: OFF
--- NOTE | 2020-03-21 12:13 | PDOC.HHP ---
Hospitalist HPI - History of Present Illness Chest pain History of Present Illness: Mr. Mclean is an 80-year-old male past medical history of hypertension, hyperlipidemia, coronary artery disease status post CABG in 2004, dementia who resides at a long term who was brought in by his brother for chest pain. Patient's brother reports that at the long term this morning patient became agitated and is normally very talkative and alert but was clutching his chest and reporting that he had some chest pain. Patient's brother reports that patient was not acting himself so he brought his mother to the emergency room. Brother reports that patient has returned to his baseline mental status and feels that his confusion was due to his chest pain or discomfort. Review of systems limited by mental status. In emergency room initial vital signs 149/79, 53, 19, 98.4, 100% on room air. Initial troponin 0 0.032. EKG showed sinus bradycardia with right bundle branch block and inferior T wave inversions. Chest x-ray with no acute findings. BUN/CR 26/1.25. H/H 14.3/41.9. WBC 6.1 sodium 142 potassium 3.6. Patient received 325 mg of aspirin in the emergency room. Patient admitted to hospitalist service for chest pain rule out. Hospitalist ROS - Review of Systems ROS unobtainable: due to mental status - Medication Medications: Medications include Aspirin Donepezil Cozaar Namenda Zoloft Atorvastatin Nifedipine No known drug allergies Hospitalist History - Past Medical History Other Medical History: Past medical history of Coronary artery disease status post CABG thousand 5. Patient follows with Dr. Tate Hypertension Hyperlipidemia Dementia Patient lives at long term his brother Brijesh is his POA. - Past Surgical History Other Surgical History: Past surgical history includes CABG in 2004 - Family History Other Family History: No pertinent family history - Social History Smoking Status: Never smoker Alcohol: reports: None Drugs: reports: none Living Situation: Longterm Activity level: independent ambulation Other Social History: Patient lives at long term secondary to dementia. Patient's brother Brijesh is his power of litigation attorney associate. - Exam General Appearance: awake alert General - other findings: ANO x1 Eye: PERRL, anicteric sclera ENT: normocephalic atraumatic, no oropharyngeal lesions, moist mucosa Neck: supple, symmetric, no JVD, no thyromegaly, no lymphadenopathy, no carotid bruit Heart: RRR, no murmur, no gallops, no rubs, normal peripheral pulses Respiratory: CTAB, no wheezes, no rales, no ronchi, normal chest expansion, no tachypnea, normal percussion Gastrointestinal: soft, non-tender, non-distended, normal bowel sounds, no palpable masses, no hepatomegaly, no splenomegaly, no bruit Extremities: no cyanosis, no clubbing, no edema Skin: normal turgor, no lesions, no rashes Neurological: cranial nerve grossly intact, normal sensation to touch, no weakness, no focal deficits, no new deficit Musculoskeletal: normal tone, normal strength, no muscle wasting Psychiatric: normal affect, normal behavior, A&O x 3 Hospitalist Results - Labs Result Diagrams: 03/21/20 10:19 03/21/20 10:19 Lab results: WBC 6.1 thou/uL (4.8-10.8) 03/21/20 10:19 Hgb 14.3 g/dL (14.0-18.0) 03/21/20 10:19 Hct 41.9 % (42.0-52.0) L 03/21/20 10:19 MCV 93.6 fL (78.0-98.0) 03/21/20 10:19 Plt Count 156 thou/uL (130-400) 03/21/20 10:19 Neutrophils % 53.6 % (42.0-75.0) 03/21/20 10:19 Sodium 142 mmol/L (136-145) 03/21/20 10:19 Potassium 3.6 mmol/L (3.5-5.1) 03/21/20 10:19 Chloride 109 mmol/L (98-107) H 03/21/20 10:19 Carbon Dioxide 21 mmol/L (23-31) L 03/21/20 10:19 BUN 26 mg/dL (8.4-25.7) H 03/21/20 10:19 Creatinine 1.25 mg/dL (0.7-1.3) 03/21/20 10:19 Glucose 109 mg/dL (83-110) 03/21/20 10:19 Calcium 9.1 mg/dL (7.8-10.44) 03/21/20 10:19 Total Bilirubin 0.6 mg/dL (0.2-1.2) 03/21/20 10:19 AST 34 U/L (5-34) 03/21/20 10:19 ALT 39 U/L (8-55) 03/21/20 10:19 Alkaline Phosphatase 88 U/L (40-110) 03/21/20 10:19 CK-MB (CK-2) 6.4 ng/mL (0-6.6) 03/21/20 10:19 Troponin I 0.032 ng/mL (< 0.028) H 03/21/20 10:19 Serum Total Protein 6.7 g/dL (5.8-8.1) 03/21/20 10:19 Albumin 4.3 g/dL (3.4-4.8) 03/21/20 10:19 Lipase 50 U/L (8-78) 03/21/20 10:19 Hospitalist H&P A/P - Plan Plan: 78-year-old male with possible history of coronary artery status post CABG, hyperlipidemia, hypertension, dementia who resides in a long term brought in by his brother for chest pain. Chest pain Patient reported to be clutching his chest and endorsing chest pain at long term this morning. Patient's brother and nursing staff report that patient was not acting himself this morning he is normally alert and oriented x1-2. Patient currently at his baseline mental status. Is confused however due to new en vironment. Initial troponin 0 0.032. EKG showed sinus bradycardia with right bundle branch block inferior T wave inversions. Patient has history of coronary artery disease status post CABG. Follows with Dr. Tate. patient currently denies chest pain although ROS is limited by mental status. Will continue to trend troponins and admit for chest pain rule out. Plan Trend troponin Telemetry monitoring ASA, continue home statin N.p.o. at midnight for stress test if troponins remain negative Dementia History of dementia. Patient on home donepezil and Namenda. Resides at long term. Brother is power of litigation attorney associate. He would like patient to remain full code. We will continue to help orient patient. Plan Continue donepezil and Namenda Continue orienting measures Coronary artery disease History of coronary artery disease status post CABG 2004. Patient presents with chest pain. We will continue plan as above. Hypertension History of hypertension on home Cozaar. And nifedipine. We will continue. Hyperlipidemia Continue home atorvastatin. DVT prophylaxisSQ heparin Full codePOA is patient's brother Brijesh Case discussed with attending physician, Dr. Morrison.
[2020-03-21] MEDS ORDERED: Nitroglycerin 0.4 MG TAB (25 Tab Bottle) SL PRN (12:20)
[2020-03-21] MEDS ORDERED: Aspirin 325 MG TAB PO SCH (12:30)
[2020-03-21] MEDS ORDERED: Aspirin Chewable 81 MG TAB ONE (12:32)
[2020-03-21 13:51] LABS: Troponin I 0.031 ng/mL (< 0.028)
[2020-03-21 14:32] VITALS: BMI 21.9
[2020-03-21] MEDS: Heparin 5,000 UNITS/ML VIAL SC SCH ×2 (15:51→22:07)
[2020-03-21 17:14] LABS: Troponin I 0.023 ng/mL (< 0.028)
[2020-03-21] MEDS ORDERED: Atorvastatin Calcium 40 MG TAB PO SCH (21:00)
[2020-03-21 23:42] LABS: SARS-CoV-2 MS2 Positive; SARS-CoV-2 N Gene Negative; SARS-CoV-2 S Gene Negative; SARS-CoV-2 by NAA Not Detected (NotDetected); SARS-CoV-2 orf1ab Negative
[2020-03-22 05:06] LABS: Anion Gap 12 mmol/L (10-20); BUN (Urea Nitrogen) 27 mg/dL (8.4-25.7); Calc. Creatinine Clearance 39 mL/min (70-130); Carbon Dioxide 28 mmol/L (23-31); Chloride 107 mmol/L (98-107); Glucose 94 mg/dL (83-110); Magnesium 2.3 mg/dL (1.6-2.6); Potassium 3.4 mmol/L (3.5-5.1); Sodium 144 mmol/L (136-145)
[2020-03-22] MEDS ORDERED: Potassium Chloride 20 MEQ TAB PO SCH (05:45)
[2020-03-22] MEDS: Heparin 5,000 UNITS/ML VIAL SC SCH ×2 (08:36→16:15)
[2020-03-22] MEDS ORDERED: Aspirin Chewable 81 MG TAB PO SCH (09:00)
[2020-03-22] MEDS ORDERED: Regadenoson 0.4 MG/5 ML SYRINGE ONE (09:15)
[2020-03-22] MEDS ORDERED: Iopamidol-370 76% 500 ML 1 ML ONE (09:27)
--- NOTE | 2020-03-22 12:36 | NM ---
Nuclear medicine Cardiac myocardial perfusion SPECT Ejection fraction study Wall motion cine: DATE:03/22/2020 9:15 AM INDICATION: Chest pain TECHNIQUE: Number of days:2 Rest Study: Technetium 99m-sestamibi (Cardiolite) dose:9.10 mCi Stress study: Technetium 99m-sestamibi (Cardiolite) dose:33.00 mCi FINDINGS: Cardiac (myocardial perfusion) SPECT There are no reversible myocardial perfusion defects. There is a mild-sized region of predominantly f ixed diminished activity involving the anterior medial aspect of the left ventricular apex likely related to overlying soft tissue artifact. Ejection fraction study Left ventricular EF = 53% Wall motion cine Normal wall motion and thickening. IMPRESSION: No evidence of reversible myocardial ischemia.
--- NOTE | 2020-03-22 14:52 | CT ---
CT arteriogram chest with IV contrast and 3-D imaging HISTORY: Chest pain. FINDINGS: There is good contrast opacification pulmonary arteries and thoracic aorta with normal bran jeffery great vessels at the aortic arch. Postoperative changes mediastinum and atherosclerosis are apparent. No lung consolidation, pneumothorax, or mediastinal adenopathy. Within the partially visualized upper abdomen, small hyperdense stones are apparent within the gallbl adder lumen. IMPRESSION : No evidence of pulmonary embolus. Cholelithiasis.
[2020-03-22] MEDS ORDERED: FLU VACC QS2020-21(65YR UP)/PF 240 MCG/0.7 ML SYRINGE IM ONE (15:00)
--- NOTE | 2020-03-22 15:10 | PDOC.DS.DS ---
Provider - Provider Date of Admission: 03/21/20 11:42 Date of Discharge: 03/22/20 Admitting Provider: Kang Morrison DO Primary Care Physician: Willie Rey Course - Hospital Course Hospital Course: Discharge diagnosis: 1. Chest pain 2. Chest pain most likely secondary to musculoskeletal etiology 3. Hypokalemia 4. Hypertriglyceridemia 5. COVID-19 PCR test negative Hospital course: Patient is a pleasant 80-year-old gentleman who was admitted to the hospital on March 21, 2020 for chest pain. He had a nuclear stress test, which did not show any evidence of reversible myocardial ischemia. Left ventricle ejection fraction was 53%. He also had CT angiogram of the chest, which did not show any evidence of pulmonary embolism. He is being discharged in stable condition. - Labs Lab Results: 03/21/20 10:19 03/22/20 04:07 Abnormal Lab Results - Last 48 hrs 03/21/20 10:19: Troponin I 0.032 H 03/21/20 10:19: RBC 4.48 L, Hct 41.9 L, MCH 32.0 H 03/21/20 10:19: Chloride 109 H, Carbon Dioxide 21 L, BUN 26 H 03/21/20 13:07: Troponin I 0.031 H 03/22/20 04:07: Triglycerides 284 H 03/22/20 04:07: Potassium 3.4 L, BUN 27 H, Creatinine 1.37 H 03/22/20 13:06: D-Dimer 0.54 H - Physical Exam Vitals: Vital Signs (12 hours) Temp Pulse Resp BP Pulse Ox 03/22/20 12:00 96.9 F L 51 L 17 170/76 H 97 03/22/20 08:00 97.5 F L 50 L 17 165/78 H 98 03/22/20 04:00 97.4 F L 52 L 12 167/79 H 99 Weight Admit Weight 144 lb 6 oz Weight 144 lb 6 oz Physical Exam: The patient was seen and examined on the day of discharge. Patient denies chest pain or shortness of breath. Vital signs are stable. S1 and S2 are heard. Lungs are clear to auscultation bilaterally. Plan - Discharge Medications Home Medications: Medication Instructions Recorded Confirmed Type Acetaminophen [Tylenol] 650 mg PO DAILY 06/16/19 03/22/20 History Donepezil HCl 5 mg PO HS 06/16/19 03/22/20 History Fluticasone Propionate 2 spray EA NARE DAILY 06/16/19 03/22/20 History Latanoprost/Pf [Latanoprost 0.005% 1 drop EA EYE HS 06/16/19 03/21/20 History Eye Drop] Mirabegron [Myrbetriq] 50 mg PO DAILY 06/16/19 03/22/20 History NIFEdipine [Nifedipine ER] 90 mg PO 1300 06/16/19 03/22/20 History Sertraline HCl [Zoloft] 25 mg PO DAILY 06/16/19 03/21/20 History Losartan Potassium [Cozaar] 100 mg PO DAILY 11/30/19 03/22/20 History Multivit-Minerals/Folic Acid 2 tab PO DAILY 11/30/19 03/22/20 History [One-A-Day Vitacraves Gummies] Aspirin 81 mg PO DAILY #30 tab.chew 12/02/19 03/22/20 Rx Atorvastatin Calcium 1 tab PO HS #0 12/02/19 03/22/20 Rx Acetaminophen 650 mg PO Q6H PRN 03/21/20 03/21/20 History Fexofenadine HCl [Munira Allergy] 180 mg PO DAILY PRN 03/21/20 03/21/20 History Hydrochlorothiazide 25 mg PO DAILY 03/21/20 03/22/20 History Loperamide HCl [Loperamide] 4 mg PO PRN PRN 03/21/20 03/21/20 History Memantine HCl [Namenda XR] 28 mg PO DAILY 03/21/20 03/22/20 History Polyethylene Glycol OPTH DROP 1 drop EA EYE PRN PRN 03/21/20 03/21/20 History [Systane Ophth Solution] Potassium Chloride 10 meq PO DAILY 03/21/20 03/22/20 History Allergies: No Known Allergies Allergy (Verified 11/30/19 14:39) - Follow up Plan [facility] (PATIENT TO RETURN TO [facility]) Willie Rey MD [Primary Care Provider] - 3 Days (CALL AND SCHEDULE FOLLOW UP APPT TO SEE DR REY WITHIN 3 DAYS) Disposition: HOME Quality - Care Measures CORE MEASURES:: N/A
[2020-03-22 15:55] VITALS: BP 170/69; TEMP 97.8
== END 2020-03-22 16:20 | disposition home or self-care (01) ==
LOC: ERS 09:22 → 2NO 11:42
PROVIDERS: ADMIT Family Medicine; ATTEND Family Medicine
DX: R07.9 Chest pain, unspecified (principal); E87.6 Hypokalemia; E78.1 Pure hyperglyceridemia; E78.5 Hyperlipidemia, unspecified; I25.10 Atherosclerotic heart disease of native coronary artery without angina pectoris; I45.10 Unspecified right bundle-branch block; K80.20 Calculus of gallbladder without cholecystitis without obstruction; Z79.82 Long term (current) use of aspirin; Z79.899 Other long term (current) drug therapy; Z95.1 Presence of aortocoronary bypass graft; Z20.828 Contact with and (suspected) exposure to other viral communicable diseases
CPT/HCPCS: 71045; 71275; 78452; 80048; 80053; 80061; 82553; 82962 ×2; 83690; 83735; 84484 ×2; 85025; 85379; 93005; 93017; 94760 ×2; 96372 ×2; 99285; A9500; G0378 ×3; U0003; 36415; 36416; 87635; J1644; J2785; Q9967

== ENCOUNTER 2020-06-25 14:15 | Emergency (ER) | payer MEDICARE ==
[2020-06-25 15:27] LABS: #Basophils 0.1 thou/uL (0.0-0.2); #Eosinphils 0.2 thou/uL (0.0-0.7); #Monocytes 0.7 thou/uL (0.11-0.59); #Neutrophils 4.1 thou/uL (1.40-6.50); %Basophils 0.8 % (0.0-1.0); %Eosinophils 2.6 % (0.0-10.0); %Lymphocytes 28.9 % (21.0-51.0); %Monocytes 9.4 % (0.0-10.0); %Neutrophils 58.3 % (42.0-75.0); Hemoglobin 15.2 g/dL (14.0-18.0); Mean Corpuscular HGB CONC 33.8 g/dL (32.0-36.0); Mean Corpuscular Hemoglobin 32.6 pg (27.0-31.0); Mean Corpuscular Volume 96.5 fL (78.0-98.0); Mean Platelet Volume 9.7 fL (7.4-10.4); Platelet Count 152 thou/uL (130-400); RBC Distribution Width 12.2 % (11.5-14.5); Red Blood Cell (RBC) Count 4.67 mill/uL (4.70-6.10); White Blood Cell (WBC) Count 7.1 thou/uL (4.8-10.8)
[2020-06-25 15:37] LABS: Bilirubin Negative (Negative); Blood, Urine Negative (Negative); Clarity Clear (Clear); Glucose, Urine (Dipstick) Normal (Negative); Ketone, Urine Negative (Negative); Leukocyte Negative Leu/uL (Negative); Nitrite Negative (Negative); Protein, Urine (Dipstick) Negative (Neg-Trace); Specific Gravity, Urine 1.021 (1.002-1.036); Urobilinogen Normal mg/dL (Less than 2)
[2020-06-25 15:57] LABS: ALT (SGPT) 28 U/L (8-55); AST (SGOT) 25 U/L (5-34); Albumin 4.3 g/dL (3.4-4.8); Alkaline Phosphatase 98 U/L (40-110); Anion Gap 14 mmol/L (10-20); BUN (Urea Nitrogen) 28 mg/dL (8.4-25.7); Bilirubin, Total 0.6 mg/dL (0.2-1.2); CK (CPK) 139 U/L (30-200); Calc. Creatinine Clearance 0 mL/min (70-130); Calcium 9.4 mg/dL (7.8-10.44); Carbon Dioxide 25 mmol/L (23-31); Chloride 109 mmol/L (98-107); Globulin 2.7 g/dL (2.4-3.5); Glucose 108 mg/dL (83-110); Lipase 75 U/L (8-78); Potassium 3.3 mmol/L (3.5-5.1); Sodium 145 mmol/L (136-145)
== END 2020-06-25 16:46 | disposition home or self-care (01) ==
LOC: ERS 14:15
DX: R41.82 Altered mental status, unspecified (principal); F03.90 Unspecified dementia, unspecified severity, without behavioral disturbance, psychotic disturbance, mood disturbance, and anxiety; I10 Essential (primary) hypertension; E78.5 Hyperlipidemia, unspecified; Z79.899 Other long term (current) drug therapy
CPT/HCPCS: 36415; 70450; 71045; 80053; 81003; 82550; 83690; 84146; 84484; 85025; 93005

== ENCOUNTER 2020-08-12 12:54 | Outpatient (CLI) | payer MEDICARE | END 2020-08-12 12:55 | disposition home or self-care (01) | LOC: EEG 12:54 | PROVIDERS: ATTEND Nurse Practitioner Acute Care | DX: R40.4 Transient alteration of awareness (principal) | CPT/HCPCS: 95816 ==

== ENCOUNTER 2020-08-25 08:36 | Emergency (ER) | payer MEDICARE ==
[2020-08-25 09:00] LABS: #Basophils 0.1 thou/uL (0.0-0.2); #Eosinphils 0.3 thou/uL (0.0-0.7); #Lymphocytes 2.4 thou/uL (1.20-3.40); #Monocytes 0.7 thou/uL (0.11-0.59); #Neutrophils 4.4 thou/uL (1.40-6.50); %Basophils 0.7 % (0.0-1.0); %Eosinophils 3.8 % (0.0-10.0); %Lymphocytes 30.5 % (21.0-51.0); %Monocytes 8.9 % (0.0-10.0); %Neutrophils 56.1 % (42.0-75.0); Hemoglobin 15.5 g/dL (14.0-18.0); Mean Corpuscular HGB CONC 33.1 g/dL (32.0-36.0); Mean Corpuscular Hemoglobin 31.4 pg (27.0-31.0); Mean Corpuscular Volume 94.7 fL (78.0-98.0); Mean Platelet Volume 9.5 fL (7.4-10.4); Platelet Count 190 thou/uL (130-400); RBC Distribution Width 12.3 % (11.5-14.5); Red Blood Cell (RBC) Count 4.95 mill/uL (4.70-6.10); White Blood Cell (WBC) Count 7.9 thou/uL (4.8-10.8)
[2020-08-25 09:23] LABS: ALT (SGPT) 41 U/L (8-55); AST (SGOT) 36 U/L (5-34); Albumin 4.3 g/dL (3.4-4.8); Alkaline Phosphatase 97 U/L (40-110); Anion Gap 14 mmol/L (10-20); BUN (Urea Nitrogen) 25 mg/dL (8.4-25.7); Bilirubin, Total 0.5 mg/dL (0.2-1.2); Calc. Creatinine Clearance 0 mL/min (70-130); Calcium 9.6 mg/dL (7.8-10.44); Carbon Dioxide 22 mmol/L (23-31); Chloride 108 mmol/L (98-107); Globulin 2.9 g/dL (2.4-3.5); Glucose 90 mg/dL (83-110); Lipase 50 U/L (8-78); Potassium 3.4 mmol/L (3.5-5.1); Protein, Total 7.2 g/dL (5.8-8.1); Sodium 141 mmol/L (136-145)
== END 2020-08-25 10:54 | disposition home or self-care (01) ==
LOC: ERS 08:36
DX: R56.9 Unspecified convulsions (principal); R41.82 Altered mental status, unspecified; I25.10 Atherosclerotic heart disease of native coronary artery without angina pectoris; E78.5 Hyperlipidemia, unspecified; I10 Essential (primary) hypertension; Z86.73 Personal history of transient ischemic attack (TIA), and cerebral infarction without residual deficits; Z79.82 Long term (current) use of aspirin; Z79.899 Other long term (current) drug therapy
CPT/HCPCS: 36415; 71045; 80053; 83690; 84484; 85025; 93005

== ENCOUNTER 2020-08-26 15:37 | Inpatient (IN) | payer MEDICARE ==
[2020-08-26 16:38] LABS: #Eosinphils 0.2 thou/uL (0.0-0.7); #Monocytes 0.6 thou/uL (0.11-0.59); #Neutrophils 2.3 thou/uL (1.40-6.50); %Basophils 0.5 % (0.0-1.0); %Eosinophils 4.3 % (0.0-10.0); %Lymphocytes 37.9 % (21.0-51.0); %Monocytes 12.2 % (0.0-10.0); %Neutrophils 45.1 % (42.0-75.0); Hemoglobin 13.4 g/dL (14.0-18.0); Mean Corpuscular HGB CONC 33.5 g/dL (32.0-36.0); Mean Corpuscular Hemoglobin 32.3 pg (27.0-31.0); Mean Corpuscular Volume 96.4 fL (78.0-98.0); Mean Platelet Volume 9.3 fL (7.4-10.4); Platelet Count 165 thou/uL (130-400); Red Blood Cell (RBC) Count 4.14 mill/uL (4.70-6.10); White Blood Cell (WBC) Count 5.2 thou/uL (4.8-10.8)
[2020-08-26 17:03] LABS: ALT (SGPT) 25 U/L (8-55); AST (SGOT) 24 U/L (5-34); Albumin 3.8 g/dL (3.4-4.8); Alkaline Phosphatase 84 U/L (40-110); Anion Gap 11 mmol/L (10-20); BUN (Urea Nitrogen) 29 mg/dL (8.4-25.7); Bilirubin, Total 0.3 mg/dL (0.2-1.2); Calc. Creatinine Clearance 0 mL/min (70-130); Carbon Dioxide 24 mmol/L (23-31); Chloride 112 mmol/L (98-107); Globulin 2.4 g/dL (2.4-3.5); Glucose 108 mg/dL (83-110); Magnesium 2.1 mg/dL (1.6-2.6); Potassium 3.6 mmol/L (3.5-5.1); Protein, Total 6.2 g/dL (5.8-8.1); Sodium 143 mmol/L (136-145)
[2020-08-26] MEDS ORDERED: Acetaminophen 325 MG TAB PO PRN ×2 (18:48→19:03)
[2020-08-26] MEDS ORDERED: Ondansetron PF 4 MG/2 ML Vial IVP PRN (18:48)
[2020-08-26] MEDS ORDERED: Polyethylene Glycol OPTH DROP 15 ML BOT EA EYE PRN (19:03)
[2020-08-26] MEDS ORDERED: Loratadine 10 MG TAB PO PRN (19:14)
[2020-08-26 20:25] LABS: Troponin I Less than 0.010 ng/mL (< 0.028)
[2020-08-26 21:35] VITALS: BMI 22.8
[2020-08-26] MEDS: Lactated Ringer's 1,000 ML IV SCH (22:23)
[2020-08-26] MEDS: Heparin 5,000 UNITS/ML VIAL SC SCH (22:24)
[2020-08-26] MEDS: Atorvastatin Calcium 40 MG TAB PO SCH (22:24)
[2020-08-26] MEDS: Famotidine 20 MG TAB PO SCH (22:25)
[2020-08-26] MEDS: Donepezil HCl 10 MG TAB PO SCH (22:25)
[2020-08-26] MEDS: Latanoprost 0.005% Ophth Soln 2.5 ml Bottle EA EYE SCH (22:29)
[2020-08-26 22:50] LABS: Troponin I 0.011 ng/mL (< 0.028)
[2020-08-27 04:55] LABS: #Basophils 0.1 thou/uL (0.0-0.2); #Eosinphils 0.3 thou/uL (0.0-0.7); #Lymphocytes 2.2 thou/uL (1.20-3.40); #Monocytes 0.6 thou/uL (0.11-0.59); #Neutrophils 3.8 thou/uL (1.40-6.50); %Basophils 0.9 % (0.0-1.0); %Eosinophils 4.7 % (0.0-10.0); %Lymphocytes 31.6 % (21.0-51.0); %Neutrophils 54.9 % (42.0-75.0); Hemoglobin 13.2 g/dL (14.0-18.0); Mean Corpuscular HGB CONC 33.6 g/dL (32.0-36.0); Mean Corpuscular Hemoglobin 32.3 pg (27.0-31.0); Mean Corpuscular Volume 96.3 fL (78.0-98.0); Mean Platelet Volume 9.9 fL (7.4-10.4); Platelet Count 164 thou/uL (130-400); RBC Distribution Width 12.1 % (11.5-14.5); Red Blood Cell (RBC) Count 4.07 mill/uL (4.70-6.10)
[2020-08-27 05:23] LABS: Anion Gap 10 mmol/L (10-20); BUN (Urea Nitrogen) 26 mg/dL (8.4-25.7); Calc. Creatinine Clearance 39 mL/min (70-130); Calcium 8.9 mg/dL (7.8-10.44); Carbon Dioxide 26 mmol/L (23-31); Chloride 111 mmol/L (98-107); Glucose 83 mg/dL (83-110); Potassium 4.1 mmol/L (3.5-5.1); Sodium 143 mmol/L (136-145)
[2020-08-27 05:24] LABS: Bacteria/HPF None Seen HPF (None Seen); Bilirubin Negative (Negative); Blood, Urine Negative (Negative); Clarity Clear (Clear); Glucose, Urine (Dipstick) Normal (Negative); Ketone, Urine Negative (Negative); Leukocyte Negative Leu/uL (Negative); Nitrite Negative (Negative); Protein, Urine (Dipstick) Negative (Neg-Trace); RBC/HPF 0-3 HPF (0-3); Specific Gravity, Urine 1.013 (1.002-1.036); Squamous Epithelial None Seen HPF (0-3); Urobilinogen Normal mg/dL (Less than 2); WBC/HPF 0-3 HPF (0-3); pH, Urine 6.5 (5.0-9.0)
[2020-08-27] MEDS: Aspirin Chewable 81 MG TAB PO SCH ×2 (09:01→13:38)
[2020-08-27] MEDS: Famotidine 20 MG TAB PO SCH (09:01)
[2020-08-27] MEDS: Losartan 25 MG TAB PO SCH ×2 (09:02→13:38)
[2020-08-27] MEDS: Multivitamin W/ Minerals 1 TAB PO SCH ×2 (09:02→13:38)
[2020-08-27] MEDS: Heparin 5,000 UNITS/ML VIAL SC SCH ×2 (09:04→21:18)
[2020-08-27] MEDS: Lactated Ringer's 1,000 ML IV SCH (11:05)
[2020-08-27 11:29] LABS: SARS-CoV-2 PCR by NAA Not Detected (NotDetected)
[2020-08-27] MEDS: NIFEdipine XL 90 MG TAB PO SCH (12:25)
[2020-08-27] MEDS: Donepezil HCl 10 MG TAB PO SCH (21:18)
[2020-08-27] MEDS: Atorvastatin Calcium 40 MG TAB PO SCH (21:18)
[2020-08-27] MEDS: Latanoprost 0.005% Ophth Soln 2.5 ml Bottle EA EYE SCH (21:19)
[2020-08-28] MEDS: Lactated Ringer's 1,000 ML IV SCH ×2 (01:16→14:39)
[2020-08-28] MEDS: Losartan 25 MG TAB PO SCH (11:48)
[2020-08-28] MEDS: Famotidine 20 MG TAB PO SCH (11:49)
[2020-08-28] MEDS: Aspirin Chewable 81 MG TAB PO SCH (11:50)
[2020-08-28] MEDS: Multivitamin W/ Minerals 1 TAB PO SCH (11:50)
[2020-08-28] MEDS: NIFEdipine XL 90 MG TAB PO SCH (11:52)
[2020-08-28] MEDS: Heparin 5,000 UNITS/ML VIAL SC SCH ×2 (13:19→20:41)
[2020-08-28] MEDS: Donepezil HCl 10 MG TAB PO SCH (20:41)
[2020-08-28] MEDS: Atorvastatin Calcium 40 MG TAB PO SCH (20:42)
[2020-08-28] MEDS: Latanoprost 0.005% Ophth Soln 2.5 ml Bottle EA EYE SCH (20:52)
[2020-08-29] MEDS: Lactated Ringer's 1,000 ML IV SCH ×2 (02:15→16:22)
[2020-08-29] MEDS: Losartan 25 MG TAB PO SCH (09:29)
[2020-08-29] MEDS: Famotidine 20 MG TAB PO SCH (09:29)
[2020-08-29] MEDS: Heparin 5,000 UNITS/ML VIAL SC SCH ×2 (09:29→20:38)
[2020-08-29] MEDS: Multivitamin W/ Minerals 1 TAB PO SCH (09:29)
[2020-08-29] MEDS: Aspirin Chewable 81 MG TAB PO SCH (09:29)
[2020-08-29] MEDS: NIFEdipine XL 90 MG TAB PO SCH (16:38)
[2020-08-29] MEDS: Latanoprost 0.005% Ophth Soln 2.5 ml Bottle EA EYE SCH (20:37)
[2020-08-29] MEDS: Donepezil HCl 10 MG TAB PO SCH (20:38)
[2020-08-29] MEDS: Atorvastatin Calcium 40 MG TAB PO SCH (20:38)
[2020-08-29] MEDS ORDERED: hydrALAZINE 20 MG/ML VIAL SLOW IVP PRN (20:58)
[2020-08-30] MEDS: Lactated Ringer's 1,000 ML IV SCH ×2 (03:04→17:41)
[2020-08-30 05:15] LABS: #Eosinphils 0.3 thou/uL (0.0-0.7); #Neutrophils 5.2 thou/uL (1.40-6.50); %Basophils 0.4 % (0.0-1.0); %Eosinophils 3.6 % (0.0-10.0); %Lymphocytes 23.3 % (21.0-51.0); %Monocytes 11.5 % (0.0-10.0); %Neutrophils 61.2 % (42.0-75.0); Hemoglobin 14.1 g/dL (14.0-18.0); Mean Corpuscular HGB CONC 34.7 g/dL (32.0-36.0); Mean Corpuscular Hemoglobin 32.6 pg (27.0-31.0); Mean Platelet Volume 9.6 fL (7.4-10.4); Platelet Count 159 thou/uL (130-400); RBC Distribution Width 11.9 % (11.5-14.5); Red Blood Cell (RBC) Count 4.34 mill/uL (4.70-6.10); White Blood Cell (WBC) Count 8.6 thou/uL (4.8-10.8)
[2020-08-30 05:41] LABS: Anion Gap 12 mmol/L (10-20); BUN (Urea Nitrogen) 16 mg/dL (8.4-25.7); Calc. Creatinine Clearance 46 mL/min (70-130); Calcium 9.5 mg/dL (7.8-10.44); Carbon Dioxide 21 mmol/L (23-31); Chloride 113 mmol/L (98-107); Glucose 86 mg/dL (83-110); Magnesium 1.9 mg/dL (1.6-2.6); Potassium 3.4 mmol/L (3.5-5.1); Sodium 143 mmol/L (136-145)
[2020-08-30] MEDS ORDERED: Lidocaine 1% (PF) 30 ML VIAL ONE (13:15)
[2020-08-30] MEDS ORDERED: Gentamicin 80 MG/2 ML VIAL ONE (13:15)
[2020-08-30] MEDS ORDERED: CEFAZOLIN 1 GM VIAL ONE (13:15)
[2020-08-30] MEDS: Heparin 5,000 UNITS/ML VIAL SC SCH ×2 (14:50→20:06)
[2020-08-30] MEDS: Aspirin Chewable 81 MG TAB PO SCH (15:34)
[2020-08-30] MEDS: Famotidine 20 MG TAB PO SCH (15:34)
[2020-08-30] MEDS: Losartan 25 MG TAB PO SCH (15:35)
[2020-08-30] MEDS: Multivitamin W/ Minerals 1 TAB PO SCH (15:36)
[2020-08-30] MEDS: NIFEdipine XL 90 MG TAB PO SCH (15:47)
[2020-08-30] MEDS: Carvedilol 6.25 MG TAB PO SCH (17:42)
[2020-08-30] MEDS: Atorvastatin Calcium 40 MG TAB PO SCH (20:06)
[2020-08-30] MEDS: Donepezil HCl 10 MG TAB PO SCH (20:06)
[2020-08-30] MEDS: Latanoprost 0.005% Ophth Soln 2.5 ml Bottle EA EYE SCH (20:06)
[2020-08-30] MEDS: Lorazepam 2 MG/ML VIAL SLOW IVP PRN (21:01)
[2020-08-31] MEDS: Lactated Ringer's 1,000 ML IV SCH (03:44)
[2020-08-31 04:48] LABS: #Eosinphils 0.3 thou/uL (0.0-0.7); #Lymphocytes 1.7 thou/uL (1.20-3.40); #Monocytes 0.9 thou/uL (0.11-0.59); #Neutrophils 5.7 thou/uL (1.40-6.50); %Basophils 0.3 % (0.0-1.0); %Eosinophils 3.4 % (0.0-10.0); %Lymphocytes 19.6 % (21.0-51.0); %Monocytes 10.6 % (0.0-10.0); Hemoglobin 13.8 g/dL (14.0-18.0); Mean Corpuscular HGB CONC 33.9 g/dL (32.0-36.0); Mean Corpuscular Hemoglobin 32.3 pg (27.0-31.0); Mean Corpuscular Volume 95.3 fL (78.0-98.0); Mean Platelet Volume 10.2 fL (7.4-10.4); Platelet Count 148 thou/uL (130-400); RBC Distribution Width 12.2 % (11.5-14.5); Red Blood Cell (RBC) Count 4.28 mill/uL (4.70-6.10); White Blood Cell (WBC) Count 8.6 thou/uL (4.8-10.8)
[2020-08-31 05:02] LABS: Anion Gap 11 mmol/L (10-20); BUN (Urea Nitrogen) 17 mg/dL (8.4-25.7); Calc. Creatinine Clearance 48 mL/min (70-130); Carbon Dioxide 23 mmol/L (23-31); Chloride 110 mmol/L (98-107); Glucose 95 mg/dL (83-110); Potassium 3.7 mmol/L (3.5-5.1); Sodium 140 mmol/L (136-145)
[2020-08-31] MEDS: Losartan 25 MG TAB PO SCH (09:04)
[2020-08-31] MEDS: Aspirin Chewable 81 MG TAB PO SCH (09:04)
[2020-08-31] MEDS: Carvedilol 6.25 MG TAB PO SCH ×2 (09:04→16:51)
[2020-08-31] MEDS: Multivitamin W/ Minerals 1 TAB PO SCH (09:05)
[2020-08-31] MEDS: Heparin 5,000 UNITS/ML VIAL SC SCH ×2 (09:05→20:42)
[2020-08-31] MEDS: Famotidine 20 MG TAB PO SCH (09:05)
[2020-08-31] MEDS: NIFEdipine XL 90 MG TAB PO SCH (14:34)
[2020-08-31] MEDS: Atorvastatin Calcium 40 MG TAB PO SCH (20:41)
[2020-08-31] MEDS: Donepezil HCl 10 MG TAB PO SCH (20:41)
[2020-08-31] MEDS: Latanoprost 0.005% Ophth Soln 2.5 ml Bottle EA EYE SCH (20:42)
[2020-08-31] MEDS: Lorazepam 2 MG/ML VIAL SLOW IVP PRN (22:02)
[2020-09-01] MEDS: Aspirin Chewable 81 MG TAB PO SCH (08:31)
[2020-09-01] MEDS: Heparin 5,000 UNITS/ML VIAL SC SCH (08:32)
[2020-09-01] MEDS: Famotidine 20 MG TAB PO SCH (08:32)
[2020-09-01] MEDS: Multivitamin W/ Minerals 1 TAB PO SCH (08:32)
[2020-09-01] MEDS: Carvedilol 6.25 MG TAB PO SCH (08:32)
[2020-09-01] MEDS: Losartan 25 MG TAB PO SCH (08:46)
[2020-09-01] MEDS: NIFEdipine XL 90 MG TAB PO SCH (12:23)
[2020-09-01 16:06] VITALS: BP 93/60; TEMP 97.8
== END 2020-09-01 16:30 | disposition home health service (06) | DRG 244 ==
LOC: ERS 15:37 → 2NO 17:52 → OBSVTOIN 08-27 14:52 → T4-B 08-31 17:59
PROVIDERS: ADMIT Internal Medicine; ATTEND Internal Medicine
PROC: 0JH606Z Insertion of Pacemaker, Dual Chamber into Chest Subcutaneous Tissue and Fascia, Open Approach (ICD-10-PCS; principal; 2020-08-30)
PROC: 02H63JZ Insertion of Pacemaker Lead into Right Atrium, Percutaneous Approach (ICD-10-PCS; 2020-08-30)
PROC: 02HK3JZ Insertion of Pacemaker Lead into Right Ventricle, Percutaneous Approach (ICD-10-PCS; 2020-08-30)
DX: I49.5 Sick sinus syndrome (principal); Z20.822 Contact with and (suspected) exposure to COVID-19; I12.9 Hypertensive chronic kidney disease with stage 1 through stage 4 chronic kidney disease, or unspecified chronic kidney disease; N18.30 Chronic kidney disease, stage 3 unspecified; F03.90 Unspecified dementia, unspecified severity, without behavioral disturbance, psychotic disturbance, mood disturbance, and anxiety; R77.8 Other specified abnormalities of plasma proteins; I25.10 Atherosclerotic heart disease of native coronary artery without angina pectoris; R56.9 Unspecified convulsions; I25.5 Ischemic cardiomyopathy; Z79.899 Other long term (current) drug therapy; Z95.1 Presence of aortocoronary bypass graft; Z82.49 Family history of ischemic heart disease and other diseases of the circulatory system; Z79.82 Long term (current) use of aspirin; Z78.1 Physical restraint status
CPT/HCPCS: 33208; 36415; 70450; 70551; 71045; 80048; 80053; 80177; 81001; 83690; 83735; 83880; 84146; 84443; 84484; 85025; 87635; 93005; 93306; 93880; 95712; 95819; 95957; 96372; G0378; J0360; J0690; J1580; J1644; J2001; J2060; U0003; U0005

== ENCOUNTER 2021-03-16 10:10 | Outpatient (CLI) | payer MEDICARE | END 2021-03-16 10:11 | disposition home or self-care (01) | LOC: BICRAD 10:10 | PROVIDERS: ATTEND Family Medicine | DX: S00.83XA Contusion of other part of head, initial encounter (principal); J32.0 Chronic maxillary sinusitis | CPT/HCPCS: 70220 ==

== ENCOUNTER 2021-04-22 13:34 | Outpatient (CLI) | payer MEDICARE | END 2021-04-22 13:35 | disposition home or self-care (01) | LOC: BICULT 13:34 | PROVIDERS: ATTEND Urology | DX: N20.0 Calculus of kidney (principal); N28.1 Cyst of kidney, acquired | CPT/HCPCS: 74018; 76770 ==

== ENCOUNTER 2021-10-04 17:06 | Inpatient (IN) | payer MEDICARE ==
[~2021-10-04 17:06] MED LIST changes: +Iopamidol-370 76% 500 ML 1 ML ONE; -Levofloxacin 500 mg/D5W 100 ml Premix Bag ONE
[2021-10-04] MEDS ORDERED: Labetalol HCl 100 MG/20 ML VIAL ONE (17:46)
[2021-10-04] MEDS ORDERED: Ondansetron PF 4 MG/2 ML Vial ONE (17:46)
[2021-10-04 18:01] LABS: #Monocytes 0.8 thou/uL (0.11-0.59); #Neutrophils 9.1 thou/uL (1.40-6.50); %Basophils 0.1 % (0.0-1.0); %Eosinophils 0.1 % (0.0-10.0); %Lymphocytes 8.9 % (21.0-51.0); %Monocytes 7.2 % (0.0-10.0); %Neutrophils 83.6 % (42.0-75.0); Hemoglobin 13.6 g/dL (14.0-18.0); Mean Corpuscular HGB CONC 33.3 g/dL (32.0-36.0); Mean Corpuscular Hemoglobin 32.6 pg (27.0-31.0); Mean Platelet Volume 9.6 fL (7.4-10.4); Platelet Count 132 thou/uL (130-400); RBC Distribution Width 12.3 % (11.5-14.5); Red Blood Cell (RBC) Count 4.17 mill/uL (4.70-6.10); White Blood Cell (WBC) Count 10.8 thou/uL (4.8-10.8)
[2021-10-04 18:28] LABS: ALT (SGPT) 24 U/L (8-55); AST (SGOT) 26 U/L (5-34); Alkaline Phosphatase 98 U/L (40-110); Anion Gap 15 mmol/L (10-20); BUN (Urea Nitrogen) 24 mg/dL (8.4-25.7); Bilirubin, Total 0.8 mg/dL (0.2-1.2); CK (CPK) 152 U/L (30-200); Calc. Creatinine Clearance 0 mL/min (70-130); Carbon Dioxide 24 mmol/L (23-31); Chloride 108 mmol/L (98-107); Estimated GFR 47; Globulin 3.1 g/dL (2.4-3.5); Glucose 132 mg/dL (83-110); Lipase 29 U/L (8-78); Potassium 3.5 mmol/L (3.5-5.1); Protein, Total 7.1 g/dL (5.8-8.1); Sodium 143 mmol/L (136-145)
[2021-10-04 18:45] LABS: CKMB 1.3 ng/mL (0-6.6)
[2021-10-04 20:14] LABS: Bacteria/HPF None Seen HPF (None Seen); Bilirubin Negative (Negative); Blood, Urine Negative (Negative); Clarity Clear (Clear); Glucose, Urine (Dipstick) Normal (Negative); Ketone, Urine Trace mg/dL (Negative); Leukocyte Negative Leu/uL (Negative); Nitrite Negative (Negative); Protein, Urine (Dipstick) 50 mg/dL (Neg-Trace); RBC/HPF 0-3 HPF (0-3); Specific Gravity, Urine 1.035 (1.002-1.036); Squamous Epithelial 0-3 HPF (0-3); Urobilinogen Normal mg/dL (Less than 2); WBC/HPF 0-3 HPF (0-3); pH, Urine 5.5 (5.0-9.0)
[2021-10-04] MEDS ORDERED: Acetaminophen 650 MG Suppository ONE (20:56)
[2021-10-04 21:10] LABS: SARS-CoV-2 NAA Rapid Test DETECTED (NotDetected)
[2021-10-04 21:46] LABS: CKMB 1.5 ng/mL (0-6.6)
[2021-10-05 00:52] LABS: Troponin I 0.034 ng/mL (< 0.028)
[2021-10-05] MEDS ORDERED: Ondansetron PF 4 MG/2 ML Vial IVP PRN (01:01)
[2021-10-05] MEDS ORDERED: Guaifenesin DM 100-10/5 ML UDCUP PO PRN (01:01)
[2021-10-05] MEDS ORDERED: Senokot S 8.6-50 MG TAB PO PRN (01:01)
[2021-10-05] MEDS ORDERED: Acetaminophen 325 MG TAB PO PRN ×2 (01:01→01:03)
[2021-10-05] MEDS ORDERED: Bisacodyl 5 MG TAB PO PRN (01:01)
[2021-10-05] MEDS ORDERED: Dexamethasone 10 MG in Sodium Chloride 0.9% 50 ML IVPB SCH ×2 (01:30→09:00)
[2021-10-05 02:53] LABS: #Lymphocytes 1.4 thou/uL (1.20-3.40); #Neutrophils 7.6 thou/uL (1.40-6.50); %Basophils 0.5 % (0.0-1.0); %Eosinophils 0.2 % (0.0-10.0); %Lymphocytes 13.4 % (21.0-51.0); %Monocytes 10.1 % (0.0-10.0); %Neutrophils 75.9 % (42.0-75.0); Hemoglobin 14.1 g/dL (14.0-18.0); Mean Corpuscular HGB CONC 32.6 g/dL (32.0-36.0); Mean Corpuscular Hemoglobin 32.4 pg (27.0-31.0); Mean Corpuscular Volume 99.3 fL (78.0-98.0); Mean Platelet Volume 9.4 fL (7.4-10.4); Platelet Count 129 thou/uL (130-400); RBC Distribution Width 12.4 % (11.5-14.5); Red Blood Cell (RBC) Count 4.34 mill/uL (4.70-6.10); White Blood Cell (WBC) Count 10.1 thou/uL (4.8-10.8)
[2021-10-05] MEDS: Sodium Chloride 0.9% 1,000 ML IV SCH ×2 (03:06→14:24)
[2021-10-05 03:20] LABS: Troponin I 0.036 ng/mL (< 0.028)
[2021-10-05 03:38] LABS: ALT (SGPT) 24 U/L (8-55); AST (SGOT) 28 U/L (5-34); Albumin 4.1 g/dL (3.4-4.8); Alkaline Phosphatase 96 U/L (40-110); Anion Gap 15 mmol/L (10-20); BUN (Urea Nitrogen) 24 mg/dL (8.4-25.7); Bilirubin, Total 0.8 mg/dL (0.2-1.2); Calc. Creatinine Clearance 32 mL/min (70-130); Calcium 9.2 mg/dL (7.8-10.44); Carbon Dioxide 27 mmol/L (23-31); Chloride 106 mmol/L (98-107); Estimated GFR 44; Globulin 3.1 g/dL (2.4-3.5); Glucose 118 mg/dL (83-110); Potassium 4.3 mmol/L (3.5-5.1); Protein, Total 7.2 g/dL (5.8-8.1); Sodium 144 mmol/L (136-145)
[2021-10-05] MEDS: cefTRIAXone\\ROCEPHIN 1 GM in Sodium Chloride 0.9% 100 ML IVPB SCH (03:45)
[2021-10-05] MEDS ORDERED: cefTRIAXone\\ROCEPHIN 1 GM VIAL ONE (04:55)
[2021-10-05] MEDS ORDERED: Enoxaparin Sodium 40 MG/0.4 ML SYRINGE ONE (08:45)
[2021-10-05] MEDS ORDERED: Famotidine 20 MG TAB ONE (08:45)
[2021-10-05] MEDS ORDERED: Aspirin Chewable 81 MG TAB ONE (08:45)
[2021-10-05] MEDS: Enoxaparin Sodium 40 MG/0.4 ML SYRINGE SC SCH (08:58)
[2021-10-05] MEDS: Famotidine 20 MG TAB PO SCH (08:58)
[2021-10-05] MEDS: Carvedilol 6.25 MG TAB PO SCH ×2 (08:58→17:41)
[2021-10-05] MEDS: Aspirin Chewable 81 MG TAB PO SCH (08:58)
[2021-10-05] MEDS: Dexamethasone 10 MG/ML VIAL SLOW IVP SCH (09:20)
[2021-10-05] MEDS ORDERED: Dexamethasone 4 mg/ml Vial ONE (09:22)
[2021-10-05] MEDS ORDERED: OLANZapine 10 MG VIAL IM SCH (13:13)
[2021-10-05 15:23] LABS: Bacteria/HPF None Seen HPF (None Seen); Bilirubin Negative (Negative); Blood, Urine 3+ (Negative); Clarity Clear (Clear); Glucose, Urine (Dipstick) Normal (Negative); Ketone, Urine Negative (Negative); Leukocyte Negative Leu/uL (Negative); Nitrite Negative (Negative); Protein, Urine (Dipstick) 70 mg/dL (Neg-Trace); Squamous Epithelial None Seen HPF (0-3); Urobilinogen Normal mg/dL (Less than 2); WBC/HPF 0-3 HPF (0-3)
[2021-10-05 15:26] LABS: RBC/HPF 21-50 HPF (0-3); Specific Gravity, Urine 1.046 (1.002-1.036)
[2021-10-05 15:27] LABS: Urine Culture Reflex No No
[2021-10-05] MEDS: Donepezil HCl 10 MG TAB PO SCH (20:08)
[2021-10-05] MEDS: Latanoprost 0.005% Ophth Soln 2.5 ml Bottle EA EYE SCH (21:33)
[2021-10-06] MEDS: cefTRIAXone\\ROCEPHIN 1 GM in Sodium Chloride 0.9% 100 ML IVPB SCH (02:33)
[2021-10-06] MEDS: Sodium Chloride 0.9% 1,000 ML IV SCH (02:33)
[2021-10-06 06:30] LABS: #Lymphocytes 1.3 thou/uL (1.20-3.40); #Monocytes 1.4 thou/uL (0.11-0.59); #Neutrophils 8.7 thou/uL (1.40-6.50); %Basophils 0.1 % (0.0-1.0); %Eosinophils 0.1 % (0.0-10.0); %Lymphocytes 11.3 % (21.0-51.0); %Monocytes 12.1 % (0.0-10.0); %Neutrophils 76.3 % (42.0-75.0); Hemoglobin 12.6 g/dL (14.0-18.0); Mean Corpuscular HGB CONC 32.3 g/dL (32.0-36.0); Mean Corpuscular Hemoglobin 32.3 pg (27.0-31.0); Mean Platelet Volume 9.9 fL (7.4-10.4); Platelet Count 134 thou/uL (130-400); RBC Distribution Width 12.4 % (11.5-14.5); Red Blood Cell (RBC) Count 3.91 mill/uL (4.70-6.10); White Blood Cell (WBC) Count 11.5 thou/uL (4.8-10.8)
[2021-10-06 06:54] LABS: Anion Gap 11 mmol/L (10-20); BUN (Urea Nitrogen) 30 mg/dL (8.4-25.7); Calc. Creatinine Clearance 37 mL/min (70-130); Calcium 8.9 mg/dL (7.8-10.44); Carbon Dioxide 27 mmol/L (23-31); Chloride 111 mmol/L (98-107); Estimated GFR 52; Glucose 92 mg/dL (83-110); Potassium 3.3 mmol/L (3.5-5.1); Sodium 146 mmol/L (136-145)
[2021-10-06] MEDS ORDERED: Potassium Chloride 20 MEQ TAB PO SCH (07:28)
[2021-10-06 08:17] LABS: Magnesium 2.2 mg/dL (1.6-2.6)
[2021-10-06] MEDS ORDERED: Dexamethasone 10 MG/ML VIAL SLOW IVP SCH (09:00)
[2021-10-06] MEDS: Enoxaparin Sodium 40 MG/0.4 ML SYRINGE SC SCH (09:59)
[2021-10-06] MEDS: Clopidogrel Bisulfate 75 MG TAB PO SCH (09:59)
[2021-10-06] MEDS: Carvedilol 6.25 MG TAB PO SCH ×2 (09:59→17:42)
[2021-10-06] MEDS: Famotidine 20 MG TAB PO SCH (09:59)
[2021-10-06] MEDS: Dexamethasone 10 MG/ML VIAL SLOW IVP SCH (09:59)
[2021-10-06] MEDS: Aspirin Chewable 81 MG TAB PO SCH (09:59)
[2021-10-06] MEDS: Zinc Sulfate 220 MG CAP PO SCH (09:59)
[2021-10-06] MEDS: Sodium Chloride 0.45% 1,000 ML IV SCH ×2 (10:00→23:19)
[2021-10-06] MEDS: Multivit, Therapeutic 1 TAB PO SCH (10:03)
[2021-10-06] MEDS: NIFEdipine XL 90 MG TAB PO SCH (13:57)
[2021-10-06] MEDS: Atorvastatin Calcium 40 MG TAB PO SCH (21:00)
[2021-10-06] MEDS: Donepezil HCl 10 MG TAB PO SCH (21:01)
[2021-10-06] MEDS: Latanoprost 0.005% Ophth Soln 2.5 ml Bottle EA EYE SCH (21:01)
[2021-10-07] MEDS ORDERED: OLANZapine 2.5 MG TAB PO SCH (01:30)
[2021-10-07] MEDS: cefTRIAXone\\ROCEPHIN 1 GM in Sodium Chloride 0.9% 100 ML IVPB SCH (01:32)
[2021-10-07 06:49] LABS: #Lymphocytes 1.1 thou/uL (1.20-3.40); #Neutrophils 6.9 thou/uL (1.40-6.50); %Basophils 0.1 % (0.0-1.0); %Eosinophils 0.1 % (0.0-10.0); %Lymphocytes 11.7 % (21.0-51.0); %Monocytes 11.4 % (0.0-10.0); %Neutrophils 76.7 % (42.0-75.0); Hemoglobin 13.3 g/dL (14.0-18.0); Mean Corpuscular HGB CONC 32.3 g/dL (32.0-36.0); Mean Corpuscular Hemoglobin 31.9 pg (27.0-31.0); Mean Corpuscular Volume 98.7 fL (78.0-98.0); Mean Platelet Volume 9.5 fL (7.4-10.4); Platelet Count 146 thou/uL (130-400); RBC Distribution Width 12.4 % (11.5-14.5); Red Blood Cell (RBC) Count 4.16 mill/uL (4.70-6.10)
[2021-10-07 07:15] LABS: Anion Gap 13 mmol/L (10-20); BUN (Urea Nitrogen) 28 mg/dL (8.4-25.7); Calc. Creatinine Clearance 43 mL/min (70-130); Calcium 8.6 mg/dL (7.8-10.44); Carbon Dioxide 23 mmol/L (23-31); Chloride 110 mmol/L (98-107); Estimated GFR 63; Glucose 89 mg/dL (83-110); Potassium 3.5 mmol/L (3.5-5.1); Sodium 142 mmol/L (136-145)
[2021-10-07] MEDS: Carvedilol 6.25 MG TAB PO SCH ×2 (10:12→17:29)
[2021-10-07] MEDS: Aspirin Chewable 81 MG TAB PO SCH (10:12)
[2021-10-07] MEDS: Multivit, Therapeutic 1 TAB PO SCH (10:12)
[2021-10-07] MEDS: Zinc Sulfate 220 MG CAP PO SCH (10:12)
[2021-10-07] MEDS: Famotidine 20 MG TAB PO SCH (10:13)
[2021-10-07] MEDS: Clopidogrel Bisulfate 75 MG TAB PO SCH (10:13)
[2021-10-07] MEDS: Dexamethasone 10 MG/ML VIAL SLOW IVP SCH (10:13)
[2021-10-07] MEDS: Enoxaparin Sodium 40 MG/0.4 ML SYRINGE SC SCH (10:13)
[2021-10-07] MEDS: NIFEdipine XL 90 MG TAB PO SCH (13:20)
[2021-10-07] MEDS: Donepezil HCl 10 MG TAB PO SCH (22:39)
[2021-10-07] MEDS: Atorvastatin Calcium 40 MG TAB PO SCH (22:39)
[2021-10-07] MEDS: Latanoprost 0.005% Ophth Soln 2.5 ml Bottle EA EYE SCH (22:41)
[2021-10-08] MEDS: cefTRIAXone\\ROCEPHIN 1 GM in Sodium Chloride 0.9% 100 ML IVPB SCH (02:33)
[2021-10-08] MEDS: Famotidine 20 MG TAB PO SCH (08:25)
[2021-10-08] MEDS: Aspirin Chewable 81 MG TAB PO SCH (08:25)
[2021-10-08] MEDS: Zinc Sulfate 220 MG CAP PO SCH (08:26)
[2021-10-08] MEDS: Carvedilol 6.25 MG TAB PO SCH ×2 (08:26→17:56)
[2021-10-08] MEDS: Multivit, Therapeutic 1 TAB PO SCH (08:26)
[2021-10-08] MEDS: Clopidogrel Bisulfate 75 MG TAB PO SCH (08:26)
[2021-10-08] MEDS: Dexamethasone 10 MG/ML VIAL SLOW IVP SCH (08:27)
[2021-10-08] MEDS: Enoxaparin Sodium 40 MG/0.4 ML SYRINGE SC SCH (08:27)
[2021-10-08] MEDS ORDERED: Dexamethasone 10 MG/ML VIAL SLOW IVP SCH (13:15)
[2021-10-08 13:42] LABS: #Lymphocytes 1.3 thou/uL (1.20-3.40); #Monocytes 0.3 thou/uL (0.11-0.59); #Neutrophils 7.1 thou/uL (1.40-6.50); %Basophils 0.2 % (0.0-1.0); %Eosinophils 0.1 % (0.0-10.0); %Lymphocytes 14.3 % (21.0-51.0); %Monocytes 3.8 % (0.0-10.0); %Neutrophils 81.6 % (42.0-75.0); Hemoglobin 14.4 g/dL (14.0-18.0); Mean Corpuscular HGB CONC 33.2 g/dL (32.0-36.0); Mean Corpuscular Hemoglobin 32.9 pg (27.0-31.0); Mean Platelet Volume 9.5 fL (7.4-10.4); Platelet Count 164 thou/uL (130-400); RBC Distribution Width 12.4 % (11.5-14.5); Red Blood Cell (RBC) Count 4.39 mill/uL (4.70-6.10); White Blood Cell (WBC) Count 8.7 thou/uL (4.8-10.8)
[2021-10-08 14:03] LABS: Anion Gap 14 mmol/L (10-20); BUN (Urea Nitrogen) 27 mg/dL (8.4-25.7); Calc. Creatinine Clearance 42 mL/min (70-130); Calcium 8.6 mg/dL (7.8-10.44); Carbon Dioxide 23 mmol/L (23-31); Chloride 108 mmol/L (98-107); Estimated GFR 60; Glucose 126 mg/dL (83-110); Potassium 3.7 mmol/L (3.5-5.1); Sodium 141 mmol/L (136-145)
[2021-10-08] MEDS: NIFEdipine XL 90 MG TAB PO SCH (14:22)
[2021-10-08] MEDS ORDERED: ALPRAZolam 0.5 MG TAB PO SCH (15:15)
[2021-10-08] MEDS: Atorvastatin Calcium 40 MG TAB PO SCH (20:39)
[2021-10-08] MEDS: Donepezil HCl 10 MG TAB PO SCH (20:40)
[2021-10-08] MEDS: Latanoprost 0.005% Ophth Soln 2.5 ml Bottle EA EYE SCH (20:41)
[2021-10-09] MEDS ORDERED: Lorazepam 2 MG/ML VIAL SLOW IVP SCH ×2 (01:15→19:30)
[2021-10-09] MEDS: cefTRIAXone\\ROCEPHIN 1 GM in Sodium Chloride 0.9% 100 ML IVPB SCH (01:35)
[2021-10-09] MEDS ORDERED: Dexamethasone 10 MG/ML VIAL SLOW IVP SCH (09:00)
[2021-10-09] MEDS: Aspirin Chewable 81 MG TAB PO SCH (09:45)
[2021-10-09] MEDS: Enoxaparin Sodium 40 MG/0.4 ML SYRINGE SC SCH (09:45)
[2021-10-09] MEDS: Famotidine 20 MG TAB PO SCH (09:45)
[2021-10-09] MEDS: Multivit, Therapeutic 1 TAB PO SCH (09:45)
[2021-10-09] MEDS: Clopidogrel Bisulfate 75 MG TAB PO SCH (09:45)
[2021-10-09] MEDS: Losartan 25 MG TAB PO SCH (09:45)
[2021-10-09] MEDS: Zinc Sulfate 220 MG CAP PO SCH (09:45)
[2021-10-09] MEDS: Carvedilol 6.25 MG TAB PO SCH ×2 (09:45→16:52)
[2021-10-09] MEDS ORDERED: [UNRECOGNIZED DRUG - REMARK] FS PRN (13:39)
[2021-10-09] MEDS: NIFEdipine XL 90 MG TAB PO SCH (14:02)
[2021-10-09] MEDS: Atorvastatin Calcium 40 MG TAB PO SCH (21:08)
[2021-10-09] MEDS: Donepezil HCl 10 MG TAB PO SCH (21:09)
[2021-10-09] MEDS: Latanoprost 0.005% Ophth Soln 2.5 ml Bottle EA EYE SCH (21:12)
[2021-10-10] MEDS: Aspirin Chewable 81 MG TAB PO SCH ×2 (10:17→11:24)
[2021-10-10] MEDS: Carvedilol 6.25 MG TAB PO SCH ×3 (10:17→17:04)
[2021-10-10] MEDS: Zinc Sulfate 220 MG CAP PO SCH ×2 (10:17→11:24)
[2021-10-10] MEDS: Clopidogrel Bisulfate 75 MG TAB PO SCH ×2 (10:17→11:24)
[2021-10-10] MEDS: Multivit, Therapeutic 1 TAB PO SCH ×2 (10:18→11:24)
[2021-10-10] MEDS: Losartan 25 MG TAB PO SCH ×2 (10:18→11:24)
[2021-10-10] MEDS: Enoxaparin Sodium 40 MG/0.4 ML SYRINGE SC SCH (10:18)
[2021-10-10] MEDS: Famotidine 20 MG TAB PO SCH ×2 (10:18→11:24)
[2021-10-10] MEDS ORDERED: Lorazepam 2 MG/ML VIAL SLOW IVP SCH (11:15)
[2021-10-10] MEDS: hydrALAZINE 20 MG/ML VIAL SLOW IVP PRN (14:03)
[2021-10-10] MEDS: NIFEdipine XL 90 MG TAB PO SCH (15:09)
[2021-10-10] MEDS: Lorazepam 2 MG/ML VIAL SLOW IVP PRN ×2 (18:08→23:32)
[2021-10-10] MEDS: Enalaprilat Dihydrate 1.25 MG/ML VIAL SLOW IVP SCH ×2 (18:09→23:33)
[2021-10-10] MEDS: Donepezil HCl 10 MG TAB PO SCH (20:25)
[2021-10-10] MEDS: Atorvastatin Calcium 40 MG TAB PO SCH (20:25)
[2021-10-10] MEDS: Latanoprost 0.005% Ophth Soln 2.5 ml Bottle EA EYE SCH (20:26)
[2021-10-11] MEDS: hydrALAZINE 20 MG/ML VIAL SLOW IVP PRN (04:01)
[2021-10-11] MEDS: Enalaprilat Dihydrate 1.25 MG/ML VIAL SLOW IVP SCH ×5 (05:35→23:45)
[2021-10-11] MEDS: Clopidogrel Bisulfate 75 MG TAB PO SCH (10:26)
[2021-10-11] MEDS: Famotidine 20 MG TAB PO SCH (10:26)
[2021-10-11] MEDS: Carvedilol 6.25 MG TAB PO SCH ×3 (10:26→17:33)
[2021-10-11] MEDS: Aspirin Chewable 81 MG TAB PO SCH (10:26)
[2021-10-11] MEDS: Enoxaparin Sodium 40 MG/0.4 ML SYRINGE SC SCH (10:26)
[2021-10-11] MEDS: Zinc Sulfate 220 MG CAP PO SCH (10:26)
[2021-10-11] MEDS: Multivit, Therapeutic 1 TAB PO SCH (10:27)
[2021-10-11] MEDS: NIFEdipine XL 90 MG TAB PO SCH (14:45)
[2021-10-11] MEDS: Atorvastatin Calcium 40 MG TAB PO SCH (20:58)
[2021-10-11] MEDS: Donepezil HCl 10 MG TAB PO SCH (20:58)
[2021-10-11] MEDS: Latanoprost 0.005% Ophth Soln 2.5 ml Bottle EA EYE SCH (20:58)
[2021-10-12 07:31] LABS: Hemoglobin 14.4 g/dL (14.0-18.0); Mean Corpuscular HGB CONC 33.5 g/dL (32.0-36.0); Mean Corpuscular Hemoglobin 32.2 pg (27.0-31.0); Mean Corpuscular Volume 96.2 fL (78.0-98.0); Mean Platelet Volume 9.2 fL (7.4-10.4); Platelet Count 170 thou/uL (130-400); RBC Distribution Width 12.1 % (11.5-14.5); Red Blood Cell (RBC) Count 4.48 mill/uL (4.70-6.10); White Blood Cell (WBC) Count 7.9 thou/uL (4.8-10.8)
[2021-10-12 07:56] LABS: Anion Gap 14 mmol/L (10-20); BUN (Urea Nitrogen) 24 mg/dL (8.4-25.7); Calc. Creatinine Clearance 42 mL/min (70-130); Calcium 9.1 mg/dL (7.8-10.44); Carbon Dioxide 26 mmol/L (23-31); Chloride 107 mmol/L (98-107); Estimated GFR 59; Glucose 100 mg/dL (83-110); Potassium 3.5 mmol/L (3.5-5.1); Sodium 143 mmol/L (136-145)
[2021-10-12] MEDS: Famotidine 20 MG TAB PO SCH (10:07)
[2021-10-12] MEDS: Clopidogrel Bisulfate 75 MG TAB PO SCH (10:07)
[2021-10-12] MEDS: Carvedilol 6.25 MG TAB PO SCH ×2 (10:07→17:06)
[2021-10-12] MEDS: Enoxaparin Sodium 40 MG/0.4 ML SYRINGE SC SCH (10:07)
[2021-10-12] MEDS: Zinc Sulfate 220 MG CAP PO SCH (10:07)
[2021-10-12] MEDS: Aspirin Chewable 81 MG TAB PO SCH (10:07)
[2021-10-12] MEDS: Multivit, Therapeutic 1 TAB PO SCH (10:07)
[2021-10-12] MEDS: Losartan 25 MG TAB PO SCH (10:13)
[2021-10-12] MEDS: NIFEdipine XL 90 MG TAB PO SCH (13:04)
[2021-10-12 17:06] VITALS: BP 122/70; TEMP 98.1
== END 2021-10-12 18:40 | DRG 177 ==
LOC: ERS 17:06 → ERHOLD 22:54 → T4-B 22:55 → OBSVTOIN 10-05 17:21
PROVIDERS: ADMIT Internal Medicine; ATTEND Internal Medicine
PROC: 8E0ZXY6 Isolation (ICD-10-PCS; principal; 2021-10-05)
DX: U07.1 COVID-19 (principal); G93.41 Metabolic encephalopathy; N17.9 Acute kidney failure, unspecified; J98.11 Atelectasis; Z66 Do not resuscitate; G30.9 Alzheimer's disease, unspecified; F02.80 Dementia in other diseases classified elsewhere, unspecified severity, without behavioral disturbance, psychotic disturbance, mood disturbance, and anxiety; I73.9 Peripheral vascular disease, unspecified; I12.9 Hypertensive chronic kidney disease with stage 1 through stage 4 chronic kidney disease, or unspecified chronic kidney disease; N18.30 Chronic kidney disease, stage 3 unspecified; I25.10 Atherosclerotic heart disease of native coronary artery without angina pectoris; E78.5 Hyperlipidemia, unspecified; H40.9 Unspecified glaucoma; E87.6 Hypokalemia; Z79.899 Other long term (current) drug therapy; Z78.1 Physical restraint status; Z95.1 Presence of aortocoronary bypass graft; Z86.73 Personal history of transient ischemic attack (TIA), and cerebral infarction without residual deficits; Z95.0 Presence of cardiac pacemaker
CPT/HCPCS: 36415; 36416; 51701; 70450; 71045; 74177; 80048; 80053; 81001; 81003; 81015; 82550; 82553; 82728; 83605; 83615; 83690; 83735; 83880; 84443; 84484; 85025; 85027; 86140; 87040; 87077; 87149; 93005; 96372; 96374; 96375; G0378; J0360; J0696; J1100; J1650; J2060; J2358; J2405; J3490; J7050; Q9967

== ENCOUNTER 2021-10-25 00:31 | Emergency (ER) | payer MEDICARE ==
[2021-10-25 01:46] LABS: #Eosinphils 0.2 thou/uL (0.0-0.7); #Lymphocytes 1.3 thou/uL (1.20-3.40); #Monocytes 0.8 thou/uL (0.11-0.59); #Neutrophils 4.4 thou/uL (1.40-6.50); %Basophils 0.2 % (0.0-1.0); %Eosinophils 3.2 % (0.0-10.0); %Lymphocytes 19.1 % (21.0-51.0); %Monocytes 12.2 % (0.0-10.0); %Neutrophils 65.3 % (42.0-75.0); Hemoglobin 14.9 g/dL (14.0-18.0); Mean Corpuscular HGB CONC 32.7 g/dL (32.0-36.0); Mean Corpuscular Hemoglobin 33.1 pg (27.0-31.0); Mean Platelet Volume 9.4 fL (7.4-10.4); Platelet Count 175 thou/uL (130-400); RBC Distribution Width 12.5 % (11.5-14.5); White Blood Cell (WBC) Count 6.7 thou/uL (4.8-10.8)
[2021-10-25 01:54] LABS: INR-International Normal Ratio 1.1; Prothrombin Time 14.3 sec (12.0-14.7)
[2021-10-25 01:55] LABS: PTT 30.5 sec (22.9-36.1)
[2021-10-25 02:06] LABS: ALT (SGPT) 39 U/L (8-55); AST (SGOT) 48 U/L (5-34); Albumin 4.2 g/dL (3.4-4.8); Alkaline Phosphatase 120 U/L (40-110); Anion Gap 16 mmol/L (10-20); BUN (Urea Nitrogen) 22 mg/dL (8.4-25.7); Bilirubin, Total 0.4 mg/dL (0.2-1.2); Calc. Creatinine Clearance 0 mL/min (70-130); Calcium 9.6 mg/dL (7.8-10.44); Carbon Dioxide 22 mmol/L (23-31); Chloride 110 mmol/L (98-107); Estimated GFR 49; Globulin 3.6 g/dL (2.4-3.5); Glucose 108 mg/dL (83-110); Potassium 3.8 mmol/L (3.5-5.1); Protein, Total 7.8 g/dL (5.8-8.1); Sodium 144 mmol/L (136-145)
== END 2021-10-25 03:54 ==
LOC: ERS 00:31
DX: S00.83XA Contusion of other part of head, initial encounter (principal); I10 Essential (primary) hypertension; I25.10 Atherosclerotic heart disease of native coronary artery without angina pectoris; E78.5 Hyperlipidemia, unspecified; F03.90 Unspecified dementia, unspecified severity, without behavioral disturbance, psychotic disturbance, mood disturbance, and anxiety; W18.30XA Fall on same level, unspecified, initial encounter; Y92.001 Dining room of unspecified non-institutional (private) residence as the place of occurrence of the external cause; Z86.73 Personal history of transient ischemic attack (TIA), and cerebral infarction without residual deficits; Z79.82 Long term (current) use of aspirin; Z79.899 Other long term (current) drug therapy
CPT/HCPCS: 36415; 70450; 70486; 71045; 72125; 80053; 85025; 85610; 85730; 93005

== ENCOUNTER 2021-11-12 09:36 | Emergency (ER) | payer MEDICARE | END 2021-11-12 11:36 | LOC: ERS 09:36 | DX: S09.90XA Unspecified injury of head, initial encounter (principal); S00.81XA Abrasion of other part of head, initial encounter; I10 Essential (primary) hypertension; E78.5 Hyperlipidemia, unspecified; Z86.73 Personal history of transient ischemic attack (TIA), and cerebral infarction without residual deficits; N40.0 Benign prostatic hyperplasia without lower urinary tract symptoms; F03.90 Unspecified dementia, unspecified severity, without behavioral disturbance, psychotic disturbance, mood disturbance, and anxiety; I25.10 Atherosclerotic heart disease of native coronary artery without angina pectoris; W05.0XXA Fall from non-moving wheelchair, initial encounter | CPT/HCPCS: 70450; 72125 ==

== ENCOUNTER 2022-06-12 08:55 | Outpatient (CLI) | payer MEDICARE | END 2022-06-12 08:56 | disposition home or self-care (01) | LOC: ULT 08:55 | PROVIDERS: ATTEND Urology | DX: N39.41 Urge incontinence (principal); N28.1 Cyst of kidney, acquired; N40.1 Benign prostatic hyperplasia with lower urinary tract symptoms | CPT/HCPCS: 76770 ==

== ENCOUNTER 2022-06-20 21:48 | Emergency (ER) | payer OTHER, MEDICARE | END 2022-06-20 23:51 | LOC: ERS 21:48 | DX: S02.40DA Maxillary fracture, left side, initial encounter for closed fracture (principal); S02.40FA Zygomatic fracture, left side, initial encounter for closed fracture; I25.10 Atherosclerotic heart disease of native coronary artery without angina pectoris; E78.5 Hyperlipidemia, unspecified; I10 Essential (primary) hypertension; W19.XXXA Unspecified fall, initial encounter | CPT/HCPCS: 70450; 93005 ==

== ENCOUNTER 2022-11-20 16:09 | Emergency (ER) | payer MEDICARE ==
[2022-11-20] MEDS ORDERED: LORazepam 2 MG/ML SYR.(CARPUJECT) ONE ×2 (17:41→19:26)
[2022-11-20 17:52] LABS: #Eosinphils 0.3 thou/uL (0.0-0.7); #Monocytes 0.6 thou/uL (0.11-0.59); #Neutrophils 3.8 thou/uL (1.40-6.50); %Basophils 0.5 % (0.0-1.0); %Eosinophils 4.4 % (0.0-10.0); %Monocytes 9.7 % (0.0-10.0); %Neutrophils 59.1 % (42.0-75.0); Hematocrit 42.9 % (42.0-52.0); Hemoglobin 13.7 g/dL (14.0-18.0); Mean Corpuscular HGB CONC 31.9 g/dL (32.0-36.0); Mean Corpuscular Hemoglobin 30.4 pg (27.0-31.0); Mean Corpuscular Volume 95.3 fl (78.0-98.0); Mean Platelet Volume 12.2 fL (7.4-10.4); Platelet Count 147 10x3/uL (130-400); RBC Distribution Width 14.1 % (11.5-14.5); White Blood Cell (WBC) Count 6.4 10x3/uL (4.8-10.8)
[2022-11-20 18:14] LABS: ALT (SGPT) 19 U/L (8-55); AST (SGOT) 32 U/L (5-34); Albumin 4.1 g/dL (3.4-4.8); Alkaline Phosphatase 105 U/L (40-110); Anion Gap 14 mmol/L (10-20); BUN (Urea Nitrogen) 25 mg/dL (8.4-25.7); Bilirubin, Total 0.4 mg/dL (0.2-1.2); CK (CPK) 207 U/L (30-200); Calc. Creatinine Clearance 0 mL/min (70-130); Calcium 9.2 mg/dL (7.8-10.44); Carbon Dioxide 25 mmol/L (23-31); Chloride 109 mmol/L (98-107); Estimated GFR 49; Globulin 2.9 g/dL (2.4-3.5); Glucose 87 mg/dL (83-110); Magnesium 2.1 mg/dL (1.6-2.6); Potassium 4.3 mmol/L (3.5-5.1); Sodium 144 mmol/L (136-145)
[2022-11-20 18:18] LABS: Troponin I 0.017 ng/mL (< 0.028)
[2022-11-20] MEDS ORDERED: Haloperidol Lactate 5 MG/ML VIAL ONE ×2 (18:42→19:26)
[2022-11-20] MEDS ORDERED: Bacitracin 1 PK ONE (19:52)
[2022-11-20] MEDS ORDERED: Boostrix 0.5 ML (Tdap) VIAL (>/=7 yrs of age) ONE (20:02)
== END 2022-11-20 20:49 | disposition home or self-care (01) ==
LOC: ERS 16:09
DX: S50.311A Abrasion of right elbow, initial encounter (principal); Z86.59 Personal history of other mental and behavioral disorders; I10 Essential (primary) hypertension; E78.5 Hyperlipidemia, unspecified; I25.10 Atherosclerotic heart disease of native coronary artery without angina pectoris; Z79.899 Other long term (current) drug therapy; W19.XXXA Unspecified fall, initial encounter; Y92.129 Unspecified place in nursing home as the place of occurrence of the external cause
CPT/HCPCS: 70450; 72125; 73502 ×2; 80053; 82550; 83735; 84484; 85025; 90715; 93005; J2060; 36415; 90471; 96361; 96374; 96375; 96376; J1630

== ENCOUNTER 2022-11-21 10:13 | Emergency (ER) | payer MEDICARE ==
[2022-11-21 11:00] LABS: #Eosinphils 0.2 thou/uL (0.0-0.7); #Monocytes 0.7 thou/uL (0.11-0.59); #Neutrophils 3.9 thou/uL (1.40-6.50); %Basophils 0.5 % (0.0-1.0); %Eosinophils 3.2 % (0.0-10.0); %Lymphocytes 25.9 % (21.0-51.0); %Monocytes 10.2 % (0.0-10.0); %Neutrophils 59.9 % (42.0-75.0); Hematocrit 43.9 % (42.0-52.0); Mean Corpuscular HGB CONC 31.9 g/dL (32.0-36.0); Mean Corpuscular Hemoglobin 30.4 pg (27.0-31.0); Mean Corpuscular Volume 95.4 fl (78.0-98.0); Mean Platelet Volume 12.3 fL (7.4-10.4); Platelet Count 129 10x3/uL (130-400); RBC Distribution Width 14.1 % (11.5-14.5); White Blood Cell (WBC) Count 6.5 10x3/uL (4.8-10.8)
[2022-11-21 11:12] LABS: INR-International Normal Ratio 1.1; Prothrombin Time 14.9 sec (12.0-14.7)
[2022-11-21 11:13] LABS: PTT 23.6 sec (22.9-36.1)
[2022-11-21 11:35] LABS: Anion Gap 13 mmol/L (10-20); Carbon Dioxide 23 mmol/L (23-31); Chloride 111 mmol/L (98-107); Potassium 4.3 mmol/L (3.5-5.1); Sodium 143 mmol/L (136-145)
[2022-11-21 11:36] LABS: ALT (SGPT) 18 U/L (8-55); AST (SGOT) 31 U/L (5-34); Albumin 3.9 g/dL (3.4-4.8); Alkaline Phosphatase 106 U/L (40-110); BUN (Urea Nitrogen) 17 mg/dL (8.4-25.7); Bilirubin, Total 0.6 mg/dL (0.2-1.2); Calc. Creatinine Clearance 0 mL/min (70-130); Calcium 9.4 mg/dL (7.6-10.4); Estimated GFR 61; Globulin 3.1 g/dL (2.4-3.5); Glucose 93 mg/dL (83-110)
[2022-11-21 12:58] LABS: Troponin I 0.025 ng/mL (< 0.028)
== END 2022-11-21 14:30 | disposition home or self-care (01) ==
LOC: ERS 10:13
DX: S00.93XA Contusion of unspecified part of head, initial encounter (principal); E78.5 Hyperlipidemia, unspecified; I10 Essential (primary) hypertension; V00.811A Fall from moving wheelchair (powered), initial encounter; Z79.82 Long term (current) use of aspirin; Z79.899 Other long term (current) drug therapy
CPT/HCPCS: 36415; 70450; 71045; 72125; 80053; 82947; 84484; 85025; 85610; 85730; 93005